=== PATIENT | female | born 1955 | race Two or more races ===

== ENCOUNTER 2018-10-25 13:30 | Inpatient (IN) | payer BC ==
--- NOTE | 2018-10-25 15:10 | ED ---
General Adult HPI <Jero Zhu - Last Filed: 10/25/18 16:56> - General Source: patient Mode of arrival: ambulatory Limitations: no limitations <Maurilio Ibrahim - Last Filed: 10/25/18 17:19> - General Chief complaint: Upper Respiratory Infection Stated complaint: cough, SOB, congestion Time Seen by Provider: 10/25/18 14:36 - History of Present Illness Initial comments: Patient is a 63-year-old male presents emergency Department by referral from [facility]. Patient reports upper respiratory symptoms for approximately 10 days that have not improved so she visited the urgent care for treatment. Rafal yoder received an x-ray at the urgent care and was diagnosed with pneumonia. Patient was given Rocephin, DuoNeb nebulized treatment and dexamethasone. Patient reports mild improvement but the costal persist. Patient reports the cough has been ongoing for approximately 10 days with "yellowish" sputum production. Patient denies shortness of breath but states that she otherwise feels "fine." Patient denies headache, otalgia or rhinorrhea. Patient denies fever, nausea, vomiting or diarrhea. Patient is a chronic smoker. (Maurilio Ibrahim) - Related Data Home Medications Medication Instructions Recorded Confirmed Multivit-Min/Iron/Folic/Lutein 1 tab PO HS 08/01/15 10/25/18 [Centrum Silver Women Tablet] Joint Flex 1 tab PO HS 10/25/18 10/25/18 Allergies Allergy/AdvReac Type Severity Reaction Status Date / Time No Known Allergies Allergy Verified 10/25/18 17:03 Review of Systems ROS Other: All systems not noted in ROS Statement are negative. <Jreo Zhu - Last Filed: 10/25/18 16:56> ROS Other: All systems not noted in ROS Statement are negative. <Maurilio Ibrahim - Last Filed: 10/25/18 17:19> ROS Statement: Those systems with pertinent positive or pertinent negative responses have been documented in the HPI. Past Medical History Past Medical History: No Reported History Additional Past Medical History / Comment(s): HAD EMERGENCY APPENDECTOMY 06/05/15. History of Any Multi-Drug Resistant Organisms: None Reported Past Surgical History: Appendectomy, Tubal Ligation Past Anesthesia/Blood Transfusion Reactions: No Reported Reaction Past Psychological History: No Psychological Hx Reported Smoking Status: Current every day smoker Past Alcohol Use History: None Reported Past Drug Use History: None Reported - Past Family History Mother History Unknown: Yes Family Medical History: Cancer Father Family Medical History: Cancer <Maurilio Ibrahim - Last Filed: 10/25/18 17:19> General Exam Limitations: no limitations General appearance: alert, in no apparent distress Head exam: Present: atraumatic, normocephalic, normal inspection Eye exam: Present: normal appearance, PERRL, EOMI Pupils: Present: normal accommodation ENT exam: Present: normal exam, normal oropharynx, mucous membranes moist, TM's normal bilaterally, normal external ear exam Neck exam: Present: normal inspection, full ROM Respiratory exam: Present: rhonchi (Mild rhonchi on the right lower base.). Absent: respiratory distress Cardiovascular Exam: Present: regular rate, normal rhythm, normal heart sounds GI/Abdominal exam: Present: soft. Absent: distended, tenderness, guarding Extremities exam: Present: normal inspection, full ROM Back exam: Present: normal inspection, full ROM Neurological exam: Present: alert, oriented X3 Psychiatric exam: Present: normal affect, normal mood Skin exam: Present: warm, intact, normal color <Maurilio Ibrahim - Last Filed: 10/25/18 17:19> Course Vital Signs 10/25/18 10/25/18 10/25/18 13:49 15:00 17:11 Temperature 99.2 F 100 F H 99.2 F Pulse Rate 113 H 109 H 91 Respiratory 18 18 18 Rate Blood Pressure 105/63 98/51 O2 Sat by Pulse 90 L 92 L 93 L Oximetry Medical Decision Making - Lab Data Result diagrams: 10/25/18 15:40 10/25/18 15:40 <Jero Zhu - Last Filed: 10/25/18 16:56> - Lab Data Result diagrams: 10/25/18 15:40 10/25/18 15:40 <Maurilio Ibrahim - Last Filed: 10/25/18 17:19> - Medical Decision Making Case discussed with RAFAL Castro. Case also discussed with Dr. Patel, covering with Dr. stratton, who will admit. (Jero Zhu) Patient is 63-year-old female presents emergency Department after direct referral from [employer]. Labs indicated leukocytosis. Due to poor oxygen saturation, smoking history and a 10 day history of present illness the patient will be admitted for close monitoring. Case was discussed with Dr. Zhu who is in agreement with the treatment plan. Patient will be placed on 1 L of oxygen and maintenance fluids. (Maurilio Ibrahim) - Lab Data Lab Results 10/25/18 10/25/18 Range/Units 15:40 15:40 WBC 11.4 H (3.8-10.6) k/uL RBC 4.14 (3.80-5.40) m/uL Hgb 13.1 (11.4-16.0) gm/dL Hct 39.8 (34.0-46.0) % MCV 96.2 (80.0-100.0) fL MCH 31.7 (25.0-35.0) pg MCHC 33.0 (31.0-37.0) g/dL RDW 12.1 (11.5-15.5) % Plt Count 351 (150-450) k/uL Sodium 136 L (137-145) mmol/L Potassium 4.2 (3.5-5.1) mmol/L Chloride 98 (98-107) mmol/L Carbon Dioxide 26 (22-30) mmol/L Anion Gap 12 mmol/L BUN 17 (7-17) mg/dL Creatinine 0.65 (0.52-1.04) mg/dL Est GFR (CKD-EPI)AfAm >90 (>60 ml/min/1.73 sqM) Est GFR (CKD-EPI)NonAf >90 (>60 ml/min/1.73 sqM) Glucose 253 H (74-99) mg/dL Calcium 9.4 (8.4-10.2) mg/dL Total Bilirubin 0.4 (0.2-1.3) mg/dL AST 27 (14-36) U/L ALT 35 (9-52) U/L Alkaline Phosphatase 49 (38-126) U/L Total Protein 6.9 (6.3-8.2) g/dL Albumin 3.9 (3.5-5.0) g/dL Disposition <Jero Zhu - Last Filed: 10/25/18 16:56> Is patient prescribed a controlled substance at d/c from ED?: No Time of Disposition: 16:16 <Maurilio Ibrahim - Last Filed: 10/25/18 17:19> Clinical Impression: Cough Disposition: ADMITTED IP TO THIS HOSP Condition: Stable
[2018-10-25] MEDS ORDERED: ACETAMINOPHEN TAB 325 MG TAB PO STA (15:34)
[2018-10-25] MEDS ORDERED: IBUPROFEN 600 MG TAB PO STA (15:34)
[2018-10-25 16:10] LABS: HCT 39.8 % (34.0-46.0); HGB 13.1 gm/dL (11.4-16.0); MCH 31.7 pg (25.0-35.0); MCV 96.2 fL (80.0-100.0); Mean Platelet Volume 6.8; Platelet Count 351 k/uL (150-450); RBC 4.14 m/uL (3.80-5.40); RDW 12.1 % (11.5-15.5); WBC 11.4 k/uL (3.8-10.6)
[2018-10-25 16:26] LABS: ALT 35 U/L (9-52); AST 27 U/L (14-36); African American GFR (CKD) >90 (>60 ml/min/1.73 sqM); Albumin 3.9 g/dL (3.5-5.0); Alkaline Phosphatase 49 U/L (38-126); Anion Gap 12 mmol/L; Blood Urea Nitrogen 17 mg/dL (7-17); Calcium 9.4 mg/dL (8.4-10.2); Carbon Dioxide 26 mmol/L (22-30); Chloride 98 mmol/L (98-107); Glucose 253 mg/dL (74-99); Potassium 4.2 mmol/L (3.5-5.1); Sodium 136 mmol/L (137-145); Total Bilirubin 0.4 mg/dL (0.2-1.3); Total Protein 6.9 g/dL (6.3-8.2)
[2018-10-25] MEDS ORDERED: NALOXONE 0.4 MG/ML 1 ML VIAL IV PRN (16:45)
[2018-10-25 19:13] VITALS: BMI 24.2
[2018-10-25] MEDS ORDERED: AZITHROMYCIN 500 MG in SODIUM CHLORIDE 0.9% 250 ML IVPB SCH (21:00)
[2018-10-25] MEDS: SODIUM CHLORIDE 0.9% 1,000 ML IV SCH (21:30)
[2018-10-26] MEDS: IPRATROPIUM-ALBUTEROL 3 ML NEB INHALATION SCH ×4 (07:48→18:58)
--- NOTE | 2018-10-26 08:20 | XR ---
EXAMINATION TYPE: XR chest 2V DATE OF EXAM: 10/26/2018 COMPARISON: 10/25/2018 HISTORY: 63-year-old female follow-up pneumonia, cough and shortness of breath TECHNIQUE: Frontal and lateral views FINDINGS: Heart normal size. Aorta and bony vasculature within normal limits. Hyperinflation with interstitial prominence. Patchy bibasilar densities have a more strandy appearance of the right base. Density slig htly increased on the left. Some nodular left hilar prominence may represent prominent vascular shadows. IMPRESSION: 1. COPD with stringy atelectasis at the right base is slightly increased patchy density at the left b ase that could represent additional atelectasis or developing infiltrate. 2. Nodular soft tissue density at the left hilum could represent prominent vascular shadows. Nonemerg ent follow-up contrast enhanced CT chest recommended to exclude underlying lymphadenopathy or mass.
[2018-10-26] MEDS: SODIUM CHLORIDE 0.9% 1,000 ML IV SCH (08:32)
[2018-10-26 10:35] LABS: Basophils % (A) 0 %; Eosinophils # (A) 0.1 k/uL (0-0.7); Eosinophils % (A) 1 %; HCT 38.6 % (34.0-46.0); HGB 12.4 gm/dL (11.4-16.0); Lymphocytes # (A) 0.8 k/uL (1.0-4.8); Lymphocytes % (A) 6 %; MCH 31.3 pg (25.0-35.0); MCHC 32.1 g/dL (31.0-37.0); MCV 97.5 fL (80.0-100.0); Mean Platelet Volume 7.5; Monocytes # (A) 0.5 k/uL (0-1.0); Monocytes % (A) 4 %; Neutrophils # (A) 11.5 k/uL (1.3-7.7); Neutrophils % (A) 89 %; Platelet Count 321 k/uL (150-450); RBC 3.96 m/uL (3.80-5.40); RDW 12.7 % (11.5-15.5)
[2018-10-26 10:48] LABS: African American GFR (CKD) >90 (>60 ml/min/1.73 sqM); Albumin 3.6 g/dL (3.5-5.0); Anion Gap 10 mmol/L; Blood Urea Nitrogen 17 mg/dL (7-17); Calcium 9.5 mg/dL (8.4-10.2); Carbon Dioxide 27 mmol/L (22-30); Chloride 101 mmol/L (98-107); Glucose 161 mg/dL (74-99); Sodium 138 mmol/L (137-145); Total Bilirubin 0.4 mg/dL (0.2-1.3); Total Protein 6.5 g/dL (6.3-8.2)
[2018-10-26 11:01] LABS: ALT 29 U/L (9-52); AST 23 U/L (14-36); Alkaline Phosphatase 32 U/L (38-126); Potassium 4.8 mmol/L (3.5-5.1)
[2018-10-26] MEDS ORDERED: RX INFO: IV CONTRAST WAS GIVEN 1 EACH MISC MISCELLANE PRN (12:34)
[2018-10-26] MEDS ORDERED: ONDANSETRON 4 MG/2 ML VIAL IVP PRN (12:41)
[2018-10-26] MEDS ORDERED: ACETAMINOPHEN TAB 325 MG TAB PO PRN (12:41)
--- NOTE | 2018-10-26 12:44 | P.HPIM ---
History of Present Illness H&P Date: 10/26/18 This is a 63-year-old female patient of Dr. Fitzgerald. Patient presented with complaints of cough and shortness of breath. Patient reports that she started developing upper respiratory symptoms 2 weeks ago including cough shortness breath and congestion. Patient reports that symptoms increased over the past 2 weeks. Patient reports that she presented to urgent care where a chest x-ray was done and she was diagnosed with pneumonia. Patient has past medical history of appendectomy and tubal ligation and nicotine dependence. Chest x-ray completed showing COPD with stringy atelectasis at the right base is slightly increased patchy density at the left base that could represent additional atelec tasis or developing infiltrate. Gradual soft tissue density left hilum could represent prominent vascular shadows nonemergent follow-up CT chest recommended to exclude underlying lymphadenopathy or mass. Patient had temperature 100.0. Patient started on Rocephin and azithromycin. Sputum culture ordered. CT chest ordered per pulmonary. At this time patient feels slightly improved. Patient having productive cough. Patient denies chest pain. Patient denies nausea vomiting or diarrhea. Patient denies any urinary burning or frequency. Review of Systems Please refer to HPI otherwise unremarkable Past Medical History Past Medical History: No Reported History Additional Past Medical History / Comment(s): HAD EMERGENCY APPENDECTOMY 06/05/15. History of Any Multi-Drug Resistant Organisms: None Reported Past Surgical History: Appendectomy, Tubal Ligation Past Anesthesia/Blood Transfusion Reactions: No Reported Reaction Past Psychological History: No Psychological Hx Reported Smoking Status: Current every day smoker Past Alcohol Use History: None Reported Additional Past Alcohol Use History / Comment(s): SMOKED 15 YEARS, <1PPD, CUT BACK NOW. Past Drug Use History: None Reported - Past Family History Mother History Unknown: Yes Family Medical History: Cancer Father Family Medical History: Cancer Medications and Allergies Home Medications Medication Instructions Recorded Confirmed Type Multivit-Min/Iron/Folic/Lutein 1 tab PO HS 08/01/15 10/25/18 History [Centrum Silver Women Tablet] Joint Flex 1 tab PO HS 10/25/18 10/25/18 History Allergies Allergy/AdvReac Type Severity Reaction Status Date / Time No Known Allergies Allergy Verified 10/25/18 17:03 Physical Exam Vitals: Vital Signs Temp Pulse Pulse Resp BP BP Pulse Ox 10/26/18 11:24 84 10/26/18 11:15 80 10/26/18 07:59 80 10/26/18 07:52 88 92 L 10/26/18 04:25 97.5 F L 78 18 103/71 92 L 10/25/18 20:15 98.0 F 94 18 97/61 92 L 10/25/18 18:40 99.1 F 95 18 105/59 92 L 10/25/18 18:14 97.6 F 94 20 94/57 93 L 10/25/18 17:11 99.2 F 91 18 98/51 93 L 10/25/18 15:00 100 F H 109 H 18 92 L 10/25/18 13:49 99.2 F 113 H 18 105/63 90 L Intake and Output 10/25/18 10/26/18 10/26/18 22:59 06:59 14:59 Other: Voiding Method Toilet Toilet Toilet # Voids 2 3 Head normocephalic Neck supple Lungs diminished bilaterally. Heart regular rate and rhythm S1-S2, no rub or gallop Abdomen is soft nontender nondistended positive bowel sounds no hepatosplenomegaly Extremities no edema Neuro alert and orientated to 3 Results CBC & Chem 7: 10/26/18 09:35 10/26/18 09:35 Labs: Abnormal Lab Results - Last 24 Hours (Table) 10/25/18 10/25/18 10/26/18 Range/Units 15:40 15:40 09:35 WBC 11.4 H 13.0 H (3.8-10.6) k/uL Neutrophils # 11.5 H (1.3-7.7) k/uL Lymphocytes # 0.8 L (1.0-4.8) k/uL Sodium 136 L (137-145) mmol/L Glucose 253 H (74-99) mg/dL Alkaline Phosphatase (38-126) U/L 10/26/18 Range/Units 09:35 WBC (3.8-10.6) k/uL Neutrophils # (1.3-7.7) k/uL Lymphocytes # (1.0-4.8) k/uL Sodium (137-145) mmol/L Glucose 161 H (74-99) mg/dL Alkaline Phosphatase 32 L (38-126) U/L Thrombosis Risk Factor Assmnt - Choose All That Apply Any of the Below Risk Factors Present?: Yes Each Factor Represents 1 point: Abnormal pulmonary function (COPD) Other Risk Factors: Yes Each Risk Factor Represents 2 Points: Age 61-74 years Other congenital or acquired thrombophilia - If yes, enter type in comment: No Thrombosis Risk Factor Assessment Total Risk Factor Score: 3 Thrombosis Risk Factor Assessment Level: Moderate Risk Assessment and Plan Assessment: 1. Increased shortness of breath and cough related to possible pneumonia. C hest x-ray completed showing COPD with stringy atelectasis at the right base is slightly increased patchy density at the left base that could represent additional atelectasis or developing infiltrate. Nodular soft density at the left hilium could represent prominent vascular shadows. Nonemergent follow-up contrast enhanced CT chest recommended to exclude underlying lymphadenopathy or mass. Pulmonary service is consulted. Sputum culture ordered. Patient started azithromycin and Rocephin. 2. Nicotine dependence. Patient educated greater than 3 minutes on smoking cessation. Nicotine patch will be ordered 3. History of appendectomy 4. Elevated blood sugars. hemoGlobin A1c will be ordered DVT prophylaxis heparin. GI prophylaxis Protonix
--- NOTE | 2018-10-26 15:11 | P.CNPUL ---
History of Present Illness Consult date: 10/26/18 Requesting physician: Arnie Patel Reason for consult: dyspnea, cough, COPD, abnormal CXR/CT Chief complaint: Acute COPD exacerbation, dyspnea, cough History of present illness: This is a 63-year-old white female patient of Dr. Fitzgerald, chronic smoker, and no other significant medical history, who presents to the emergency department on 10/25/2018 with complaints of shortness of breath, cough, congestion. Patient was sent to the ED from the urgent care clinic. Patient apparently had a upper respiratory symptoms for last 10 days which progressed to cough, congestion in the chest. She is producing yellow sputum, denied any fever or chills, chest x-ray was completed showing a COPD with stringy atelectasis at the right base, and increased patchy density at the left base that could represent atelectasis or developing infiltrate. There is a nodular soft tissue density at the left hilum, and follow-up CT chest was recommended to exclude any underlying pulmonary malignancy. Patient has never been seen by a independent living specialist, she is not on any inhalers or oxygen at home. She was started on empiric antibiotics for possibility of underlying pneumonia, and exacerbation of COPD. Lab work was reviewed showing admission blood work White blood cell count of 11.4, hemoglobin of 13.1, serum sodium is 136, potassium is 4.2, the rest of electrolytes and renal profile were within normal limits, LFTs were within normal limits. Low-grade temp yesterday with a T-max of 100F. She is afebrile today, breathing easier, lung sounds reveal diminished breath sounds bilaterally, no significant chest congestion, or wheezing. Review of Systems All systems: negative Constitutional: Denies chills, Denies fever Eyes: denies blurred vision, denies pain Ears, nose, mouth and throat: Denies headache, Denies sore throat Cardiovascular: Denies chest pain, Denies shortness of breath Respiratory: Reports congestion, Reports cough with sputum, Reports dyspnea, Denies cough Gastrointestinal: Denies abdominal pain, Denies diarrhea, Denies nausea, Denies vomiting Genitourinary: Denies dysuria, Denies hematuria Musculoskeletal: Denies myalgias Integumentary: Denies pruritus, Denies rash Neurological: Denies numbness, Denies weakness Psychiatric: Denies anxiety, Denies depression Endocrine: Denies fatigue, Denies weight change Past Medical History Past Medical History: No Reported History Additional Past Medical History / Comment(s): HAD EMERGENCY APPENDECTOMY 06/05/15. History of Any Multi-Drug Resistant Organisms: None Reported Past Surgical History: Appendectomy, Tubal Ligation Past Anesthesia/Blood Transfusion Reactions: No Reported Reaction Past Psychological History: No Psychological Hx Reported Smoking Status: Current every day smoker Past Alcohol Use History: None Reported Additional Past Alcohol Use History / Comment(s): SMOKED 15 YEARS, <1PPD, CUT BACK NOW. Past Drug Use History: None Reported - Past Family History Mother History Unknown: Yes Family Medical History: Cancer Father Family Medical History: Cancer Medications and Allergies Home Medications Medication Instructions Recorded Confirmed Type Multivit-Min/Iron/Folic/Lutein 1 tab PO HS 08/01/15 10/25/18 History [Centrum Silver Women Tablet] Joint Flex 1 tab PO HS 10/25/18 10/25/18 History Allergies Allergy/AdvReac Type Severity Reaction Status Date / Time No Known Allergies Allergy Verified 10/25/18 17:03 Physical Exam Vitals: Vital Signs Temp Pulse Pulse Resp BP BP Pulse Ox 10/26/18 12:56 97.6 F 93 16 94/56 94 L 10/26/18 11:24 84 10/26/18 11:15 80 10/26/18 07:59 80 10/26/18 07:52 88 92 L 10/26/18 04:25 97.5 F L 78 18 103/71 92 L 10/25/18 20:15 98.0 F 94 18 97/61 92 L 10/25/18 18:40 99.1 F 95 18 105/59 92 L 10/25/18 18:14 97.6 F 94 20 94/57 93 L 10/25/18 17:11 99.2 F 91 18 98/51 93 L 10/25/18 15:00 100 F H 109 H 18 92 L Intake and Output 10/25/18 10/26/18 10/26/18 22:59 06:59 14:59 Other: Voiding Method Toilet Toilet Toilet # Voids 2 3 4 # Bowel Movements 0 GENERAL EXAM: Alert, pleasant, 63-year-old white female, on room air, with a pulse ox of 94%, comfortable in no apparent distress. HEAD: Normocephalic/atraumatic. EYES: Normal reaction of pupils, equal size. Conjunctiva pink, sclera white. NOSE: Clear with pink turbinates. THROAT: No erythema or exudates. NECK: No masses, no JVD, no thyroid enlargement, no adenopathy. CHEST: No chest wall deformity. Symmetrical expansion. LUNGS: Equal air entry with diminished breath sounds bilaterally, no rhonchi, no wheezing CVS: Regular rate and rhythm, normal S1 and S2, no gallops, no murmurs, no rubs ABDOMEN: Soft, nontender. No hepatosplenomegaly, normal bowel sounds, no guarding or rigidity. EXTREMITIES: No clubbing, no edema, no cyanosis, 2+ pulses and upper and lower extremities. MUSCULOSKELETAL: Muscle strength and tone normal. SPINE: No scoliosis or deformity SKIN: No rashes CENTRAL NERVOUS SYSTEM: Alert and oriented -3. No focal deficits, tone is normal in all 4 extremities. PSYCHIATRIC: Alert and oriented -3. Appropriate affect. Intact judgment and insight. Results - Laboratory Findings CBC and BMP: 10/26/18 09:35 10/26/18 09:35 Abnormal lab findings: Abnormal Labs 10/25/18 10/25/18 10/26/18 15:40 15:40 09:35 WBC 11.4 H 13.0 H Neutrophils # 11.5 H Lymphocytes # 0.8 L Sodium 136 L Glucose 253 H Alkaline Phosphatase 10/26/18 09:35 WBC Neutrophils # Lymphocytes # Sodium Glucose 161 H Alkaline Phosphatase 32 L - Diagnostic Findings Chest x-ray: report reviewed, image reviewed Assessment and Plan Plan: Assessment: #1. Dyspnea related to acute COPD exacerbation, chest x-ray showed COPD with stringy atelectasis at the right base and atelectasis at the left base, or developing early infiltrates #2. Nodular soft tissue density at the left hilum, rule out possibility of lung malignancy #3. Chronic smoker #4. COPD the severity of which is unknown at this time, patient is not on any inhalers or oxygen #5. Recent history of upper respiratory infection #6. History of appendectomy Plan: Continue current medical treatment, will obtain CT chest with contrast to characterize the left hilar nodularity. Continue same antibiotics, breathing treatments, clinically patient is improving. Room air pulse ox is 94%, no fever or chills, senna sputum for culture, we'll continue to follow I performed a history & physical examination of the patient and discussed their management with my nurse practitioner, Jyothi Palacios. I reviewed the nurse practitioner's note and agree with the documented findings and plan of care. Lung sounds are positive for diminished breath sounds throughout the lung [place]. The findings and the impression was discussed with the patient. I attest to the documentation by the nurse practitioner. Time with Patient: Greater than 30
--- NOTE | 2018-10-26 16:30 | CT ---
EXAMINATION TYPE: CT chest w con DATE OF EXAM: 10/26/2018 COMPARISON: Radiograph same day HISTORY: 63-year-old female cough, congestion, pneumonia TECHNIQUE: Contiguous axial scanning of the chest after the administration of 100 mL of Isovue 300. Coronal/sagittal reconstructions performed. CT DLP: 466mGycm. Automatic exposure control utilized for a dose reduction. FINDINGS: Heart normal size without pericardial effusion. Aorta normal caliber with mild atherosclerotic arch calcifications and conventional arch vessel branc alina anatomy. Scattered nonenlarged mediastinal lymph nodes are present. No thoracic lymphadenopathy by CT size cri teria. There is some focal opacity along the anterior medial left midlung and adjacent patchy groundglass in the lingula. 7 mm subpleural pulmonary nodule anterior right lower lung. Patchy bibasilar areas of probable scarring and atelectasis. No pleural effusion. Moderate to advanced emphysema, relatively severe in the upper lungs. No hilar lymphadenopathy or hilar mass. No pleural effusion. Visualized upper abdomen shows prominent suggesting debris within the stomach. Bones: Mild degenerative disc disease throughout. IMPRESSION: 1. Mild infiltrate anteromedial left midlung with some adjacent groundglass. Correlate for infectious /inflammatory foci, possible early pneumonia. 2. A 7 mm subpleural pulmonary nodule on the right. Three-month follow-up CT chest to reassess. 3. COPD with moderate to advanced emphysema and bibasilar scarring or atelectasis. 4. No hilar mass or lymphadenopathy at the questioned radiographic site.
[2018-10-26] MEDS: HEPARIN SODIUM,PORCINE 5,000 UNIT/ML 1 ML VIAL SQ SCH (20:14)
[2018-10-26 20:49] LABS: Hemoglobin A1C 6.2 % (4.0-6.0)
[2018-10-26] MEDS ORDERED: AZITHROMYCIN 500 MG TAB PO SCH (21:00)
[2018-10-27 06:15] VITALS: BP 95/61; RESP 16; TEMP 97.8
[2018-10-27] MEDS: SODIUM CHLORIDE 0.9% 1,000 ML IV SCH (07:19)
[2018-10-27] MEDS: IPRATROPIUM-ALBUTEROL 3 ML NEB INHALATION SCH ×2 (07:26→11:15)
[2018-10-27] MEDS ORDERED: PANTOPRAZOLE 40 MG TABLET PO SCH (07:30)
[2018-10-27] MEDS: HEPARIN SODIUM,PORCINE 5,000 UNIT/ML 1 ML VIAL SQ SCH (08:06)
[2018-10-27 09:10] LABS: Basophils % (A) 0 %; Eosinophils # (A) 0.1 k/uL (0-0.7); Eosinophils % (A) 1 %; HCT 39.3 % (34.0-46.0); HGB 12.5 gm/dL (11.4-16.0); Lymphocytes # (A) 2.5 k/uL (1.0-4.8); Lymphocytes % (A) 28 %; MCH 31.4 pg (25.0-35.0); MCHC 31.9 g/dL (31.0-37.0); MCV 98.5 fL (80.0-100.0); Monocytes # (A) 0.3 k/uL (0-1.0); Monocytes % (A) 4 %; Neutrophils # (A) 5.8 k/uL (1.3-7.7); Neutrophils % (A) 66 %; Platelet Count 330 k/uL (150-450); RBC 3.99 m/uL (3.80-5.40); RDW 13.9 % (11.5-15.5); WBC 8.8 k/uL (3.8-10.6)
[2018-10-27 09:30] LABS: ALT 31 U/L (9-52); AST 19 U/L (14-36); African American GFR (CKD) >90 (>60 ml/min/1.73 sqM); Albumin 3.4 g/dL (3.5-5.0); Alkaline Phosphatase 40 U/L (38-126); Anion Gap 10 mmol/L; Blood Urea Nitrogen 17 mg/dL (7-17); Calcium 9.2 mg/dL (8.4-10.2); Carbon Dioxide 26 mmol/L (22-30); Chloride 103 mmol/L (98-107); Glucose 156 mg/dL (74-99); Potassium 4.3 mmol/L (3.5-5.1); Sodium 139 mmol/L (137-145); Total Bilirubin 0.2 mg/dL (0.2-1.3); Total Protein 6.1 g/dL (6.3-8.2)
[2018-10-27 11:27] VITALS: PULSE 80
--- NOTE | 2018-10-27 12:57 | P.DS ---
Providers Date of admission: 10/27/18 09:43 Expected date of discharge: 10/27/18 Attending physician: Arnie Patel Consults: 10/25/18 20:32 Consult Physician Routine Consulting Provider: Manuel Harris Consult Reason/Comments: pneumonia Do you want consulting provider notified?: Yes, Notify in am Primary care physician: Nava Fitzgerald Hospital Course: Discharge diagnosis 1. Increased shortness of breath and cough related to possible pneumonia. Chest x-ray completed showing COPD with stringy atelectasis at the right base is slightly increased patchy density at the left base that could represent additional atelectasis or developing infiltrate. Nodular soft density at the left hilium could represent prominent vascular shadows. Nonemergent follow-up contrast enhanced CT chest recommended to exclude underlying lymphadenopathy or mass. Pulmonary service is consulted. Sputum culture ordered. Patient started azithromycin and Rocephin. CT scan of chest completed showing mild infiltrate anterior medial left mid and lung with some adjacent groundglass. Correlate for infectious inflammatory foci possibly early pneumonia. Pulmonary services has cleared patient for discharge. Patient will be discharged on Ceftin for one week per pulmonary recommendation. Patient to follow-up outpatient for further workup 2. Pulmonary nodule seen on computed tomography scan. Computed tomography scan and 7 mm subpleural pulmonary nodule in the right recommended three-month follow-up CT. Discussed with pulmonary services. Patient has been cleared for discharge patient to follow-up in pulmonary office for further workup and management 3. Nicotine dependence. Patient educated greater than 3 minutes on smoking cessation. Nicotine patch will be ordered 4. History of appendectomy 5. Elevated blood sugars. hemoGlobin A1c 6.2. Patient to follow-up with PCP for further management Hospital course This is a 63-year-old female patient of Dr. Fitzgerald. Patient presented with complaints of cough and shortness of breath. Patient reports that she started developing upper respiratory symptoms 2 weeks ago including cough shortness breath and congestion. Patient reports that symptoms increased over the past 2 weeks. Patient reports that she presented to urgent care where a chest x-ray was done and she was diagnosed with pneumonia. Patient has past medical history of appendectomy and tubal ligation and nicotine dependence. Chest x-ray completed showing COPD with stringy atelectasis at the right base is slightly increased patchy density at the left base that could represent additional atelectasis or developing infiltrate. Gradual soft tissue density left hilum could represent prominent vascular shadows nonemergent follow-up CT chest recommended to exclude underlying lymphadenopathy or mass. Patient had temperature 100.0. Patient started on Rocephin and azithromycin. Sputum culture ordered. CT chest ordered per pulmonary. At this time patient feels slightly improved. Patient having productive cough. Patient denies chest pain. Patient denies nausea vomiting or diarrhea. Patient denies any urinary burning or frequency. On 10/27/2018 patient is alert and oriented 3. Patient discusses that she is not very eager to go home. Patient has been cleared for discharge from pulmonar y standpoint. Patient reports shortness of breath has significantly improved. Patient denies chest pain. Patient denies nausea vomiting or diarrhea. Patient denies any urinary burning or frequency. Patient will be DC'd on Ceftin for one week per pulmonary recommendation. Patient to follow-up with pulmonary services for follow-up in regards to pulmonary nodule. Repeat CT in 3 months. Patient to follow-up with PCP for further management I performed an examination of the patient and discussed their management with the Nurse Practitioner. I have reviewed the Nurse Practitioner's notes and agree with the documented findings and plan of care Patient Condition at Discharge: Stable Plan - Discharge Summary Discharge Rx Participant: Yes New Discharge Prescriptions: New Cefuroxime Axetil [Ceftin] 500 mg PO BID 7 Days #14 tab Continue Multivit-Min/Iron/Folic/Lutein [Centrum Silver Women Tablet] 1 tab PO HS Joint Flex 1 tab PO HS Discharge Medication List Multivit-Min/Iron/Folic/Lutein [Centrum Silver Women Tablet] 1 tab PO HS 6 [History] Joint Flex 1 tab PO HS 10/25/18 [History] Cefuroxime Axetil [Ceftin] 500 mg PO BID 7 Days #14 tab 10/27/18 [Rx] Follow up Appointment(s)/Referral(s): Nava Fitzgerald MD [Primary Care Provider] - 1-2 days Manuel Harris MD [STAFF PHYSICIAN] - 1 Week Patient Instructions/Handouts: Viral Pneumonia (DC), Pneumococcal Vaccine for Adults (ED) Activity/Diet/Wound Care/Special Instructions: Please follow-up with neurologist. Please return to emergency department if symptoms worsen. Discharge Disposition: HOME SELF-CARE
--- NOTE | 2018-10-27 14:03 | P.PN ---
Subjective Progress Note Date: 10/27/18 Principal diagnosis: Acute exacerbation of chronic obstructive pulmonary disease This is a 63-year-old white female patient of Dr. Fitzgerald, chronic smoker, and no other significant medical history, who presents to the emergency department on 10/25/2018 with complaints of shortness of breath, cough, congestion. Patient was sent to the ED from the urgent care clinic. Patient apparently had a upper respiratory symptoms for last 10 days which progressed to cough, congestion in the chest. She is producing yellow sputum, denied any fever or chills, chest x-ray was completed showing a COPD with stringy atelectasis at the right base, and increased patchy density at the left base that could represent atelectasis or developing infiltrate. There is a nodular soft tissue density at the left hilum, and follow-up CT chest was recommended to exclude any underlying pulmonary malignancy. Patient has never been seen by a duplication specialist, she is not on any inhalers or oxygen at home. She was started on empiric antibiotics for possibility of underlying pneumonia, and exacerbation of COPD. Lab work was reviewed showing admission blood work White blood cell count of 11.4, hemoglobin of 13.1, serum sodium is 136, potassium is 4.2, the rest of electrolytes and renal profile were within normal limits, LFTs were within normal limits. Low-grade temp yesterday with a T-max of 100F. She is afebrile today, breathing easier, lung sounds reveal diminished breath sounds bi laterally, no significant chest congestion, or wheezing. The patient is seen today 10/27/2018 in follow-up on the regular medical floor. She is awake and alert in no acute distress. No worsening shortness of breath, cough or congestion. She's been afebrile. Maintaining good O2 saturations in the 90s on 1 L/m per nasal cannula. White count 8.8. Hemoglobin 12.5. Creatinine 0.62. She is continued on ceftriaxone and azithromycin along with bronchodilators. She is quite anxious to go home. Objective - Vital Signs Vital signs: Vital Signs Temp 97.8 F 10/27/18 06:14 Pulse 80 10/27/18 11:26 Resp 16 10/27/18 06:14 BP 95/61 10/27/18 06:14 Pulse Ox 94 L 10/27/18 07:28 Intake & Output 07/06/1510/27/18 10/27/18 18:59 06:59 18:59 Other: Voiding Method Toilet Toilet # Voids 4 1 # Bowel Movements 0 - Exam GENERAL EXAM: Very pleasant 63-year-old female patient. Alert, active, comfortable in no apparent distress. HEAD: Normocephalic. EYES: Normal reaction of pupils, equal size. NOSE: Clear with pink turbinates. THROAT: No erythema or exudates. NECK: No masses, no JVD. CHEST: No chest wall deformity. LUNGS: Equal air entry with faint end expiratory wheeze, diminished CVS: S1 and S2 normal with no audible murmur, regular rhythm. ABDOMEN: No hepatosplenomegaly, normal bowel sounds, no guarding or rigidity. SPINE: No scoliosis or deformity SKIN: No rashes CENTRAL NERVOUS SYSTEM: No focal deficits, tone is normal in all 4 extremities. EXTREMITIES: There is no peripheral edema. No clubbing, no cyanosis. Peripheral pulses are intact. - Labs CBC & Chem 7: 10/27/18 08:12 10/27/18 08:12 Labs: Abnormal Lab Results - Last 24 Hours (Table) 10/26/18 10/27/18 Range/Units 09:35 08:12 Glucose 156 H (74-99) mg/dL Hemoglobin A1c 6.2 H (4.0-6.0) % Total Protein 6.1 L (6.3-8.2) g/dL Albumin 3.4 L (3.5-5.0) g/dL Assessment and Plan Assessment: Assessment: #1. Dyspnea related to acute COPD exacerbation, chest x-ray showed COPD with stringy atelectasis at the right base and atelectasis at the left base, or developing early infiltrates #2. Nodular soft tissue density at the left hilum, rule out possibility of lung malignancy #3. Chronic smoker #4. COPD the severity of which is unknown at this time, patient is not on any inhalers or oxygen #5. Recent history of upper respiratory infection #6. History of appendectomy Plan: The patient was seen and evaluated by Dr. Harris. She does have a 7 mm subpleural pulmonary nodule on the right with recommendations for a three-month follow-up computed tomography scan of the chest to reassess. There is also COPD with moderate to advanced emphysema and bibasilar scarring/atelectasis. No hilar mass or lymphadenopathy noted. She is cleared for discharge from the pulmonary standpoint. She should follow-up in our office where we can perform full pulmonary function testing and evaluate the severity of her COPD and make further recommendations regarding maintenance medications. She is educated regarding the importance of complete smoking cessation. I, the cosigning physician, performed a history & physical examination of the patient. Lungs sounds with end expiratory wheeze, diminished Maintaining good O2 saturations in the 90s on 1 L/m per nasal cannula. I discussed the assessment and plan of care with my nurse practitioner, Kinjal Huang. I attest to the above note as dictated by her.
== END 2018-10-27 14:18 | disposition home or self-care (01) | DRG 191 ==
LOC: EC 13:30 → 4MS4W 17:05 → OBSVTOIN 10-27 09:43
PROVIDERS: ADMIT Internal Medicine; ATTEND Internal Medicine
DX: J44.1 Chronic obstructive pulmonary disease with (acute) exacerbation (principal); J98.11 Atelectasis; R73.9 Hyperglycemia, unspecified; R91.1 Solitary pulmonary nodule; F17.210 Nicotine dependence, cigarettes, uncomplicated; Z90.49 Acquired absence of other specified parts of digestive tract; Z98.51 Tubal ligation status; Z80.9 Family history of malignant neoplasm, unspecified
CPT/HCPCS: 36415; 71046; 71260; 80053; 83036; 85025; 85027; 94640; 94760; 99285

== ENCOUNTER 2021-08-16 09:25 | Observation (INO) | payer MEDICARE ==
--- NOTE | 2021-08-16 10:10 | ED ---
General Adult HPI - General Chief complaint: Weakness Stated complaint: Weakness, near syncope Time Seen by Provider: 08/16/21 09:55 Source: patient, RN notes reviewed, old records reviewed Mode of arrival: wheelchair Limitations: no limitations - History of Present Illness Initial comments: 65-year-old female alert and oriented 4 presents to the emergency room with shortness of breath dizziness and feeling foggy with chest heaviness that started at 7:00 this morning. Patient states she did vomit one time it was clear in color. She also did get diaphoretic but resolved with rest. She does have a history of COPD. She does not use oxygen at home. She has never been a smoker. She does have bilateral lower extremity swelling. -: hour(s) (3) Location: chest Quality: other (heaviness) Improves with: rest Worsens with: movement (ambulating) Associated Symptoms: chest pain (heaviness), nausea/vomiting, shortness of breath, other (dizziness) Treatments Prior to Arrival: none - Related Data Home Medications Medication Instructions Recorded Confirmed Multivit-Min/Iron/Folic/Lutein 1 tab PO HS 08/01/15 08/16/21 [Centrum Silver Women Tablet] Glucosamine/Chondr Dailey A Sod [Osteo 1 tab PO HS 08/16/21 08/16/21 Bi-Flex Caplet] Allergies Allergy/AdvReac Type Severity Reaction Status Date / Time No Known Allergies Allergy Verified 08/16/21 13:01 Review of Systems ROS Statement: Those systems with pertinent positive or pertinent negative responses have been documented in the HPI. ROS Other: All systems not noted in ROS Statement are negative. Past Medical History Past Medical History: COPD Additional Past Medical History / Comment(s): HAD EMERGENCY APPENDECTOMY 06/05/15. History of Any Multi-Drug Resistant Organisms: None Reported Past Surgical History: Appendectomy, Tubal Ligation Past Anesthesia/Blood Transfusion Reactions: No Reported Reaction Past Psychological History: No Psychological Hx Reported Smoking Status: Former smoker Past Alcohol Use History: None Reported Past Drug Use History: None Reported - Past Family History Mother History Unknown: Yes Family Medical History: Cancer Father Family Medical History: Cancer General Exam Limitations: no limitations General appearance: alert, in no apparent distress Head exam: Present: atraumatic, normocephalic Eye exam: Absent: scleral icterus, conjunctival injection, periorbital swelling ENT exam: Present: normal exam, normal oropharynx, mucous membranes moist Neck exam: Present: normal inspection, full ROM. Absent: tenderness, meni ngismus, lymphadenopathy Respiratory exam: Present: rales (Bilateral bases). Absent: respiratory distress, chest wall tenderness, accessory muscle use Cardiovascular Exam: Present: regular rate, normal rhythm Extremities exam: Present: normal capillary refill, pedal edema (2+ bilateral). Absent: tenderness, joint swelling, calf tenderness Back exam: Present: normal inspection, full ROM. Absent: tenderness, CVA tenderness (R), CVA tenderness (L), rash noted Neurological exam: Present: alert, oriented X3 Psychiatric exam: Present: normal affect, normal mood Skin exam: Present: warm, dry, intact, normal color. Absent: cyanosis, diaphoretic, erythema, petechiae, pallor, mottled Course Vital Signs 08/16/21 08/16/21 08/16/21 09:33 11:25 11:28 Temperature 98 F 97.7 F Pulse Rate 84 71 Respiratory 15 20 Rate Blood Pressure 107/70 122/73 O2 Sat by Pulse 86 L 96 Oximetry 08/16/21 08/16/21 12:56 14:10 Temperature 97.7 F Pulse Rate 86 86 Respiratory 20 20 Rate Blood Pressure 122/80 104/61 O2 Sat by Pulse 95 95 Oximetry EKG Findings - EKG Results: EKG: sinus rhythm (Ventricular rate of 77, MI interval 0.150, QRS 0.85, QTC 0.394; T-wave inversions in V3, no old EKG) Medical Decision Making - Medical Decision Making Patient presents with shortness of breath and dizziness with chest pressure and diaphoresis, oxygen saturation 86% on room air. Patient does have 1+ bilateral lower extremity edema. There is no evidence of leukocytosis. BNP was 957, troponin is -0.012, EKG does not show any sign of ST elevation. Patient was placed on 4 liters nasal cannula and oxygen saturation increased to 96%. Patient will be admitted to the hospital for COPD exacerbation with hypoxia. Case discussed with Dr. Eli - Lab Data Result diagrams: 08/16/21 10:12 08/16/21 10:12 Lab Results 08/16/21 08/16/21 08/16/21 Range/Units 10:12 10:12 10:12 WBC 7.8 (3.8-10.6) k/uL RBC 4.87 (3.80-5.40) m/uL Hgb 16.2 H (11.4-16.0) gm/dL Hct 49.5 H (34.0-46.0) % MCV 101.8 H (80.0-100.0) fL MCH 33.3 (25.0-35.0) pg MCHC 32.7 (31.0-37.0) g/dL RDW 13.9 (11.5-15.5) % Plt Count 186 (150-450) k/uL MPV 7.8 Neutrophils % 78 % Lymphocytes % 10 % Monocytes % 5 % Eosinophils % 4 % Basophils % 0 % Neutrophils # 6.1 (1.3-7.7) k/uL Lymphocytes # 0.8 L (1.0-4.8) k/uL Monocytes # 0.4 (0-1.0) k/uL Eosinophils # 0.3 (0-0.7) k/uL Basophils # 0.0 (0-0.2) k/uL Macrocytosis Slight PT 10.6 (9.0-12.0) sec INR 1.0 (<1.2) APTT 23.3 (22.0-30.0) sec Sodium (137-145) mmol/L Potassium (3.5-5.1) mmol/L Chloride (98-107) mmol/L Carbon Dioxide (22-30) mmol/L Anion Gap mmol/L BUN (7-17) mg/dL Creatinine (0.52-1.04) mg/dL Est GFR (CKD-EPI)AfAm (>60 ml/min/1.73 sqM) Est GFR (CKD-EPI)NonAf (>60 ml/min/1.73 sqM) Glucose (74-99) mg/dL Plasma Lactic Acid Asael (0.7-2.0) mmol/L Calcium (8.4-10.2) mg/dL Magnesium (1.6-2.3) mg/dL Total Bilirubin (0.2-1.3) mg/dL AST (14-36) U/L ALT (4-34) U/L Alkaline Phosphatase (38-126) U/L Troponin I (0.000-0.034) ng/mL NT-Pro-B Natriuret Pep pg/mL Total Protein (6.3-8.2) g/dL Albumin (3.5-5.0) g/dL Urine Color Yellow Urine Appearance Clear (Clear) Urine pH 6.5 (5.0-8.0) Ur Specific [place] 1.016 (1.001-1.035) Urine Protein Negative (Negative) Urine Glucose (UA) Negative (Negative) Urine Ketones Negative (Negative) Urine Blood Negative (Negative) Urine Nitrite Negative (Negative) Urine Bilirubin Negative (Negative) Urine Urobilinogen <2.0 (<2.0) mg/dL Ur Leukocyte Esterase Negative (Negative) 08/16/21 08/16/21 08/16/21 Range/Units 10:12 10:12 10:12 WBC (3.8-10.6) k/uL RBC (3.80-5.40) m/uL Hgb (11.4-16.0) gm/dL Hct (34.0-46.0) % MCV (80.0-100.0) fL MCH (25.0-35.0) pg MCHC (31.0-37.0) g/dL RDW (11.5-15.5) % Plt Count (150-450) k/uL MPV Neutrophils % % Lymphocytes % % Monocytes % % Eosinophils % % Basophils % % Neutrophils # (1.3-7.7) k/uL Lymphocytes # (1.0-4.8) k/uL Monocytes # (0-1.0) k/uL Eosinophils # (0-0.7) k/uL Basophils # (0-0.2) k/uL Macrocytosis PT (9.0-12.0) sec INR (<1.2) APTT (22.0-30.0) sec Sodium 136 L (137-145) mmol/L Potassium 5.1 (3.5-5.1) mmol/L Chloride 100 (98-107) mmol/L Carbon Dioxide 32 H (22-30) mmol/L Anion Gap 4 mmol/L BUN 18 H (7-17) mg/dL Creatinine 0.84 (0.52-1.04) mg/dL Est GFR (CKD-EPI)AfAm 84 (>60 ml/min/1.73 sqM) Est GFR (CKD-EPI)NonAf 73 (>60 ml/min/1.73 sqM) Glucose 108 H (74-99) mg/dL Plasma Lactic Acid Asael 1.0 (0.7-2.0) mmol/L Calcium 9.4 (8.4-10.2) mg/dL Magnesium 1.7 (1.6-2.3) mg/dL Total Bilirubin 0.9 (0.2-1.3) mg/dL AST 24 (14-36) U/L ALT 24 (4-34) U/L Alkaline Phosphatase 37 L (38-126) U/L Troponin I <0.012 (0.000-0.034) ng/mL NT-Pro-B Natriuret Pep pg/mL Total Protein 6.6 (6.3-8.2) g/dL Albumin 3.7 (3.5-5.0) g/dL Urine Color Urine Appearance (Clear) Urine pH (5.0-8.0) Ur Specific [place] (1.001-1.035) Urine Protein (Negative) Urine Glucose (UA) (Negative) Urine Ketones (Negative) Urine Blood (Negative) Urine Nitrite (Negative) Urine Bilirubin (Negative) Urine Urobilinogen (<2.0) mg/dL Ur Leukocyte Esterase (Negative) 08/16/21 Range/Units 10:12 WBC (3.8-10.6) k/uL RBC (3.80-5.40) m/uL Hgb (11.4-16.0) gm/dL Hct (34.0-46.0) % MCV (80.0-100.0) fL MCH (25.0-35.0) pg MCHC (31.0-37.0) g/dL RDW (11.5-15.5) % Plt Count (150-450) k/uL MPV Neutrophils % % Lymphocytes % % Monocytes % % Eosinophils % % Basophils % % Neutrophils # (1.3-7.7) k/uL Lymphocytes # (1.0-4.8) k/uL Monocytes # (0-1.0) k/uL Eosinophils # (0-0.7) k/uL Basophils # (0-0.2) k/uL Macrocytosis PT (9.0-12.0) sec INR (<1.2) APTT (22.0-30.0) sec Sodium (137-145) mmol/L Potassium (3.5-5.1) mmol/L Chloride (98-107) mmol/L Carbon Dioxide (22-30) mmol/L Anion Gap mmol/L BUN (7-17) mg/dL Creatinine (0.52-1.04) mg/dL Est GFR (CKD-EPI)AfAm (>60 ml/min/1.73 sqM) Est GFR (CKD-EPI)NonAf (>60 ml/min/1.73 sqM) Glucose (74-99) mg/dL Plasma Lactic Acid Asael (0.7-2.0) mmol/L Calcium (8.4-10.2) mg/dL Magnesium (1.6-2.3) mg/dL Total Bilirubin (0.2-1.3) mg/dL AST (14-36) U/L ALT (4-34) U/L Alkaline Phosphatase (38-126) U/L Troponin I (0.000-0.034) ng/mL NT-Pro-B Natriuret Pep 957 pg/mL Total Protein (6.3-8.2) g/dL Albumin (3.5-5.0) g/dL Urine Color Urine Appearance (Clear) Urine pH (5.0-8.0) Ur Specific [place] (1.001-1.035) Urine Protein (Negative) Urine Glucose (UA) (Negative) Urine Ketones (Negative) Urine Blood (Negative) Urine Nitrite (Negative) Urine Bilirubin (Negative) Urine Urobilinogen (<2.0) mg/dL Ur Leukocyte Esterase (Negative) Disposition Clinical Impression: Hypoxia, COPD (chronic obstructive pulmonary disease) Disposition: ADMITTED IP TO THIS HOSP Decision Date: 08/16/21 Decision Time: 12:05
[2021-08-16 10:22] LABS: Basophils % (A) 0 %; Eosinophils # (A) 0.3 k/uL (0-0.7); Eosinophils % (A) 4 %; HCT 49.5 % (34.0-46.0); HGB 16.2 gm/dL (11.4-16.0); Lymphocytes # (A) 0.8 k/uL (1.0-4.8); Lymphocytes % (A) 10 %; MCH 33.3 pg (25.0-35.0); MCHC 32.7 g/dL (31.0-37.0); MCV 101.8 fL (80.0-100.0); Macrocytosis Slight; Mean Platelet Volume 7.8; Monocytes # (A) 0.4 k/uL (0-1.0); Monocytes % (A) 5 %; Neutrophils # (A) 6.1 k/uL (1.3-7.7); Neutrophils % (A) 78 %; Platelet Count 186 k/uL (150-450); RBC 4.87 m/uL (3.80-5.40); RDW 13.9 % (11.5-15.5); WBC 7.8 k/uL (3.8-10.6)
[2021-08-16 10:34] LABS: Partial Thromboplastin Time 23.3 sec (22.0-30.0); Prothrombin Time 10.6 sec (9.0-12.0)
[2021-08-16 10:37] LABS: Albumin 3.7 g/dL (3.5-5.0); Calcium 9.4 mg/dL (8.4-10.2); Magnesium 1.7 mg/dL (1.6-2.3); Potassium 5.1 mmol/L (3.5-5.1); Total Bilirubin 0.9 mg/dL (0.2-1.3); Total Protein 6.6 g/dL (6.3-8.2)
--- NOTE | 2021-08-16 10:49 | XR ---
EXAMINATION TYPE: XR chest 2V DATE OF EXAM: 08/16/2021 COMPARISON: Chest x-ray 10/26/2018, CT 10/26/2018 INDICATION: Weakness TECHNIQUE: Frontal and lateral views of the chest are obtained. FINDINGS: The heart size is normal. The pulmonary vasculature is normal. Fullness remains at the left perihilar region. There is some linear opacity at the left base may be related to atelectasis. Mild plate atelectasis i s also likely present at the right lung base. Previous CT reported 7 mm subpleural nodule on the rig ht, consider repeat CT chest to confirm stability. IMPRESSION: 1. Bibasilar platelike atelectasis. 2. Persistent fullness at the left perihilar region. 3. Consider follow-up CT to confirm stability of previous right subpleural nodularity reported by CT exam.
[2021-08-16 11:28] LABS: Appearance,Urine Clear (Clear); Bilirubin,Urine Negative (Negative); Blood,Urine Negative (Negative); Color,Urine Yellow; Glucose,Urine (UA) Negative (Negative); Ketones,Urine Negative (Negative); Leukocyte Esterase,Urine Negative (Negative); Nitrite,Urine Negative (Negative); PH, Urine 6.5 (5.0-8.0); Protein,Urine Negative (Negative); Specific Gravity,Urine 1.016 (1.001-1.035); Urobilinogen,Urine <2.0 mg/dL (<2.0)
[2021-08-16] MEDS ORDERED: NALOXONE 0.4 MG/ML 1 ML VIAL IV PRN (12:05)
[2021-08-16] MEDS ORDERED: ACETAMINOPHEN TAB 325 MG TAB PO PRN (12:05)
--- NOTE | 2021-08-16 15:41 | P.HPIM ---
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 She presents because of worsening dyspnea over the last 1-2 days associated with cough and white milky phlegm which looks chronic as per patient and some chest tightness and pressure on the central chest which is much worse with coughing. She was to smoke and quit about 2 weeks ago and denies alcohol or illicit drugs. No abdominal pain or vomiting. No dysuria or urgency. No headache or dizziness. No weakness or numbness. No fever. She is hemodynamically stable but slightly tachypneic at 20 breaths per minute, on admission she was hypoxic at 86% on room air. Saturation is currently 95% on 4 L oxygen. Labs show an unremarkable CBC, hemoglobin elevated with 16.2, INR 1.0, sodium 136, creatinine 0.8. BUN 18 ProBNP is 957, liver enzymes not elevated. Troponin is negative less than 0.01. Urine analysis is negative. EKG showed normal sinus rhythm at 77 with moderate T-wave abnormality, consider anterior ischemia. And QTC 394. Chest x-ray showing bibasilar platelike atelectasis, persistent fullness in the left perihilar region. Consider follow-up CT to confirm stability of previously right subpleural nodularity reported by computed tomography scan Intake emergency room patient was just given Tylenol. Review of Systems CONSTITUTIONAL: No fever, no malaise, no fatigue. HEENT: No recent visual problems or hearing problems. Denied any sore throat. CARDIOVASCULAR: No orthopnea, PND, no palpitations, no syncope. PULMONARY: No chest wall tenderness, no hemoptysis. GASTROINTESTINAL: No diarrhea, no nausea, no vomiting, no abdominal pain. Normoactive bowel sounds. NEUROLOGICAL: No headaches, no weakness, no numbness. HEMATOLOGICAL: Denies any bleeding or petechiae. GENITOURINARY: Denies any burning micturition, frequency, or urgency. MUSCULOSKELETAL/RHEUMATOLOGICAL: Denies any joint pain, swelling, or any muscle pain. ENDOCRINE: Denies any polyuria or polydipsia. Past Medical History Past Medical History: COPD Additional Past Medical History / Comment(s): HAD EMERGENCY APPENDECTOMY 06/05/15. History of Any Multi-Drug Resistant Organisms: None Reported Past Surgical History: Appendectomy, Tubal Ligation Past Anesthesia/Blood Transfusion Reactions: No Reported Reaction Past Psychological History: No Psychological Hx Reported Smoking Status: Former smoker Past Alcohol Use History: None Reported Past Drug Use History: None Reported - Past Family History Mother History Unknown: Yes Family Medical History: Cancer Father Family Medical History: Cancer Medications and Allergies Home Medications Medication Instructions Recorded Confirmed Type Multivit-Min/Iron/Folic/Lutein 1 tab PO HS 08/01/15 08/16/21 History [Centrum Silver Women Tablet] Glucosamine/Chondr Dailey A Sod [Osteo 1 tab PO HS 08/16/21 08/16/21 History Bi-Flex Caplet] Allergies Allergy/AdvReac Type Severity Reaction Status Date / Time No Known Allergies Allergy Verified 08/16/21 13:01 Physical Exam Vitals: Vital Signs Temp Pulse Pulse Resp BP BP Pulse Ox 08/16/21 14:35 98.1 F 106 H 15 107/63 93 L 08/16/21 14:10 97.7 F 86 20 104/61 95 08/16/21 12:56 86 20 122/80 95 08/16/21 11:28 97.7 F 08/16/21 11:25 71 20 122/73 96 08/16/21 09:33 98 F 84 15 107/70 86 L Intake and Output 08/16/21 08/16/21 08/16/21 06:59 14:59 22:59 Other: Weight 77.111 kg GENERAL: The patient is alert and oriented x3, not in any acute distress. Well developed, well nourished. HEENT: Pupils are round and equally reacting to light. EOMI. No scleral icterus. No conjunctival pallor. Normocephalic, atraumatic. No pharyngeal erythema. No thyromegaly. CARDIOVASCULAR: S1 and S2 present. No murmurs, rubs, or gallops. -PULMONARY: Chest is clear to auscultation, scattered wheezing. No crepitation ABDOMEN: Soft, nontender, nondistended, normoactive bowel sounds. No palpable organomegaly. MUSCULOSKELETAL: No joint swelling or deformity. EXTREMITIES: No cyanosis, clubbing, or pedal edema. NEUROLOGICAL: Gross neurological examination did not reveal any focal deficits. SKIN: No rashes. No petechiae Results CBC & Chem 7: 08/16/21 10:12 08/16/21 10:12 Labs: Abnormal Lab Results - Last 24 Hours (Table) 08/16/21 08/16/21 Range/Units 10:12 10:12 Hgb 16.2 H (11.4-16.0) gm/dL Hct 49.5 H (34.0-46.0) % MCV 101.8 H (80.0-100.0) fL Lymphocytes # 0.8 L (1.0-4.8) k/uL Sodium 136 L (137-145) mmol/L Carbon Dioxide 32 H (22-30) mmol/L BUN 18 H (7-17) mg/dL Glucose 108 H (74-99) mg/dL Alkaline Phosphatase 37 L (38-126) U/L Thrombosis Risk Factor Assmnt - Choose All That Apply Each Factor Represents 1 point: Swollen legs (current) Each Risk Factor Represents 2 Points: Age 61-74 years Thrombosis Risk Factor Assessment Total Risk Factor Score: 3 Thrombosis Risk Factor Assessment Level: Moderate Risk Assessment and Plan Assessment: Acute COPD exacerbation Chest pressure Left hilar fullness Multiple lung nodules Nicotine dependence, patient was counseled and she already quit. She declines nicotine patch Mild erythrocytosis, could be secondary related to her hypoxia Plan: This is a pleasant 65 years old female who presents with shortness of breath and coughing. We will and inhaled steroids and bronchodilators We will check another troponin and d-dimer. I discussed with the patient if the d-dimer positive for going to do CTA of the chest with contrast, risks of ALLERGY and nephrotoxicity with could be irreversible are explained for the patient in details and she verbalized understanding and acceptance Give gentle hydration until tomorrow Pulmonary consult Labs and medication were reviewed.. Continue same treatment. Continue with symptomatic treatment. Resume home medication. Monitor lytes and vitals. DVT and GI prophylaxis. Further recommendations depends on the clinical course of the patient DVT prophylaxis: Subcutaneous heparin GI Prophylaxis: Pepcid PT/OT: Pending Prognosis is guarded
[2021-08-16] MEDS: SODIUM CHLORIDE 0.9% 1,000 ML IV SCH (16:52)
--- NOTE | 2021-08-16 18:27 | CT ---
EXAMINATION TYPE: CT angio chest CT DLP: 329.4 mGycm, Automated exposure control for dose reduction was used. DATE OF EXAM: 08/16/2021 6:02 PM COMPARISON: Chest radiograph from same day. Multiple CTs of the chest with most recent on 10/26/2018 CLINICAL INDICATION:Female, 65 years old with history of sob elevated dimer; SOB, elevated d-dimer TECHNIQUE/CONTRAST: CTA scan of the thorax is performed with IV Contrast, patient injected with 100 mL of Isovue 370, pul monary embolism protocol. MIP images are created and reviewed. FINDINGS: Pulmonary Artery: There is no evidence for a filling defect within the pulmonary vasculature to sugge st acute pulmonary embolism. The pulmonary artery is of normal size. Lungs/Pleura: No evidence of focal consolidation, pleural effusion or pneumothorax. Severe centrilobu lar emphysema changes are most proximal lung apices. Streaky atelectasis/scarring is present in the l naida bases. Airway: Mild bronchial wall thickening is seen most pronounced in the lung bases. Heart: Within normal limits for size. Mild coronary artery atherosclerosis. Vasculature: No evidence of aortic aneurysm. Atherosclerosis of the arterial vasculature. Mediastinum: No gross evidence of adenopathy. Musculoskeletal: No acute osseous abnormalities. Multilevel disc degeneration changes throughout the spine. Soft Tissues: Unremarkable. Lower neck: No significant findings. Upper Abdomen: No significant findings. IMPRESSION: 1. No evidence of pulmonary embolism. 2. Severe COPD/emphysema changes.
--- NOTE | 2021-08-16 18:53 | US ---
EXAMINATION TYPE: US venous doppler duplex LE DATE OF EXAM: 08/16/2021 6:34 PM COMPARISON: NONE CLINICAL HISTORY: leg swelling. edema SIDE PERFORMED: Bilateral TECHNIQUE: The lower extremity deep venous system is examined utilizing real time linear array sonog jaya with graded compression, doppler sonography and color-flow sonography. VESSELS IMAGED: Common Femoral Vein Deep Femoral Vein Greater Saphenous Vein * Femoral Vein Popliteal Vein Small Saphenous Vein * Proximal Calf Veins (* superficial vessels) Grayscale, color doppler, spectral doppler imaging performed of the deep veins of the lower extremiti es. There is normal flow, compressibility, vascular waveforms. Right Leg: Negative for DVT Left Leg: Negative for DVT IMPRESSION: No evidence of DVT of the bilateral lower extremities.
[2021-08-16] MEDS: BUDESONIDE 1 MG/2 ML NEBU INHALATION SCH (19:32)
[2021-08-16] MEDS: IPRATROPIUM-ALBUTEROL 3 ML NEB INHALATION PRN (19:32)
[2021-08-16] MEDS: HEPARIN SODIUM,PORCINE/PF 5,000 UNIT/0.5 ML SYRINGE SQ SCH (20:08)
[2021-08-16] MEDS: FAMOTIDINE 20 MG/2 ML VIAL IV SCH (20:08)
[2021-08-16] MEDS ORDERED: methylPREDNISolone SOD SUCCI 125 MG/2 ML VIAL IV STA (21:12)
[2021-08-17] MEDS: SODIUM CHLORIDE 0.9% 1,000 ML IV SCH (05:12)
[2021-08-17] MEDS: BUDESONIDE 1 MG/2 ML NEBU INHALATION SCH ×2 (08:39→19:20)
[2021-08-17] MEDS: IPRATROPIUM-ALBUTEROL 3 ML NEB INHALATION PRN ×2 (08:39→19:20)
[2021-08-17] MEDS: HEPARIN SODIUM,PORCINE/PF 5,000 UNIT/0.5 ML SYRINGE SQ SCH ×2 (09:23→20:57)
[2021-08-17] MEDS: FAMOTIDINE 20 MG/2 ML VIAL IV SCH ×2 (09:23→20:56)
--- NOTE | 2021-08-17 10:01 | P.CNPUL ---
History of Present Illness Consult date: 08/17/21 Requesting physician: Haseeb Ball Reason for consult: dyspnea, COPD Chief complaint: Shortness of breath, weakness History of present illness: This is a very pleasant 65-year-old female patient who follows with Dr. Fitzgerald as her primary care provider. No significant past medical history. She does have a history of chronic and ongoing tobacco dependence of approximately 50 years. She has not been seen by a customs director in the outpatient setting. She was here back in 2019 for suspected COPD exacerbation. She presented to the emergency room yesterday with complaints of shortness of breath, dizziness and weakness. White count 7.8. Hemoglobin 16.2. A site 0.8. D-dimer 0.69. Sodi um 136. Potassium 5.1. Bicarb 32. BUN 18. Creatinine 0.84. Troponins negative 3. Glucose 108. ProBNP 957. Urinalysis clean. Chest x-ray reveals bibasilar place like atelectasis. Persistent fullness in the left perihilar region. EKG reveals sinus rhythm with some T-wave inversions in the anterior leads. CT angiogram ruled out pulmonary embolism. There is evidence of severe COPD/emphysema. No focal consolidation, pleural effusion or pneumothorax. Some streaky atelectasis/scarring in the lung bases. Dopplers of the lower extremity negative for DVT. She was initiated on DuoNeb inhalations, Pulmicort inhalations. She is seen today in follow-up in consultation on the regular [facility] floor. She is currently sitting up in bed. Awake and alert in no acute distress. She is maintaining O2 saturations in the 90s on 4 L/m per nasal cannula. Normal saline at 75 ML's per hour. She denies any worsening shortness of breath cough or congestion. She is feeling quite a bit better today compared to yesterday. Feeling back to her baseline. Review of Systems REVIEW OF SYSTEMS: CONSTITUTIONAL: Positive for generalized weakness. Denies any recent signi ficant weight loss or weight gain. EYES: Denies change in vision. EARS, NOSE, MOUTH, THROAT: Denies headaches, denies sore throat. CARDIOVASCULAR: Denies chest pain, palpitations or syncopal episodes. RESPIRATORY: Positive for shortness of breath, cough, congestion no hemoptysis. GASTROINTESTINAL: Denies change in appetite, denies abdominal pain GENITOURINARY: Denies hematuria, denies infections. MUSKULOSKELETAL: Denies pain, denies swelling. INTEGUMENTARY: Denies rash, denies eczema. NEUROLOGICAL: Denies recent memory loss, no recent seizure activity. PSYCHIATRIC: Denies anxiety, denies depression. HEMATOLOGIC/LYMPHATIC: Denies anemia, denies enlarged lymph nodes. Past Medical History Past Medical History: COPD Additional Past Medical History / Comment(s): HAD EMERGENCY APPENDECTOMY 06/05/15. History of Any Multi-Drug Resistant Organisms: None Reported Past Surgical History: Appendectomy, Tubal Ligation Past Anesthesia/Blood Transfusion Reactions: No Reported Reaction Past Psychological History: No Psychological Hx Reported Smoking Status: Former smoker Past Alcohol Use History: None Reported Past Drug Use History: None Reported - Past Family History Mother History Unknown: Yes Family Medical History: Cancer Father Family Medical History: Cancer Medications and Allergies Home Medications Medication Instructions Recorded Confirmed Type Multivit-Min/Iron/Folic/Lutein 1 tab PO HS 08/01/15 08/16/21 History [Centrum Silver Women Tablet] Glucosamine/Chondr Dailey A Sod [Osteo 1 tab PO HS 08/16/21 08/16/21 History Bi-Flex Caplet] Allergies Allergy/AdvReac Type Severity Reaction Status Date / Time No Known Allergies Allergy Verified 08/16/21 13:01 Physical Exam Vitals: Vital Signs Temp Pulse Pulse Pulse Resp BP BP 08/17/21 09:26 18 08/17/21 08:49 84 08/17/21 08:41 08/17/21 08:39 91 08/17/21 06:43 98 F 88 18 111/67 08/17/21 01:29 98.6 F 92 16 105/68 08/16/21 19:44 89 08/16/21 19:35 83 08/16/21 19:20 97.4 F L 93 16 105/71 08/16/21 15:34 08/16/21 14:35 98.1 F 106 H 15 107/63 08/16/21 14:10 97.7 F 86 20 104/61 08/16/21 12:56 86 20 122/80 08/16/21 11:28 97.7 F 08/16/21 11:25 71 20 122/73 Pulse Ox 08/17/21 09:26 08/17/21 08:49 08/17/21 08:41 94 L 08/17/21 08:39 08/17/21 06:43 91 L 08/17/21 01:29 90 L 08/16/21 19:44 08/16/21 19:35 94 L 08/16/21 19:20 95 08/16/21 15:34 95 08/16/21 14:35 93 L 08/16/21 14:10 95 08/16/21 12:56 95 08/16/21 11:28 08/16/21 11:25 96 Intake and Output 08/16/21 08/17/21 08/17/21 22:59 06:59 14:59 Other: Voiding Method Toilet # Voids 1 1 0 GENERAL EXAM: Alert, active, pleasant 65-year-old female patient, on 4 L nasal cannula, comfortable in no apparent distress. HEAD: Normocephalic. EYES: Normal reaction of pupils, equal size. NOSE: Clear with pink turbinates. THROAT: No erythema or exudates. NECK: No masses, no JVD. CHEST: No chest wall deformity. LUNGS: Equal air entry with no crackles, wheeze, rhonchi or dullness. Diminished CVS: S1 and S2 normal with no audible murmur, regular rhythm. ABDOMEN: No hepatosplenomegaly, normal bowel sounds, no guarding or rigidity. SPINE: No scoliosis or deformity SKIN: No rashes CENTRAL NERVOUS SYSTEM: No focal deficits, tone is normal in all 4 extremities. EXTREMITIES: There is no peripheral edema. No clubbing, no cyanosis. Perip heral pulses are intact. Results - Laboratory Findings CBC and BMP: 08/16/21 10:12 08/16/21 10:12 PT/INR, D-dimer PT 10.6 sec (9.0-12.0) 08/16/21 10:12 INR 1.0 (<1.2) 08/16/21 10:12 D-Dimer 0.69 mg/L FEU (<0.60) H 08/16/21 15:50 Abnormal lab findings: Abnormal Labs 08/16/21 08/16/21 08/16/21 10:12 10:12 15:50 Hgb 16.2 H Hct 49.5 H MCV 101.8 H Lymphocytes # 0.8 L D-Dimer 0.69 H Sodium 136 L Carbon Dioxide 32 H BUN 18 H Glucose 108 H Alkaline Phosphatase 37 L - Diagnostic Findings Chest x-ray: image reviewed CT scan - chest: image reviewed Assessment and Plan Assessment: 1 Acute hypoxemic respiratory failure secondary to an acute exacerbation of chronic obstructive pulmonary disease 2 Generalized weakness secondary to above 3 Chronic and ongoing tobacco dependence Plan: The patient was seen and evaluated CAT scan, chest x-ray and labs reviewed No evidence of pneumonia Could be discharged home Recommend a Medrol Dosepak Initiate Symbicort, albuterol HFA Evaluate for possible home oxygen Follow up in our office for full pulmonary function testing I have personally seen and examined the patient, performed the documentation and the assessment and plan as written. Number of minutes spent on the visit: 20.
[2021-08-17 11:49] LABS: Magnesium 1.9 mg/dL (1.5-2.4)
--- NOTE | 2021-08-17 12:01 | P.CRDCN ---
History of Present Illness Consult date: 08/17/21 Consult reason: sycope History of present illness: This is Leland Stevens NP, I'm dictating on behalf of Dr. Wolfe's H&P and A&P The patient was interviewed and examined. HPI: [Patient is a pleasant 65-year-old female who initially presented to the hospital with complaints of dizziness, weakness, shortness of breath, chest heaviness, and passing out. Patient reports a prior hospitalization, she was at home attempting to the bathroom, when she states she felt like she was going to black out. She states she had very dizzy, weak, short of breath, felt some chest heaviness, and went down to the floor. Patient reported that after laying on the floor for some time, she felt better and was able to get up. This is what prompted her to present to the hospital for evaluation. The emergency department patient was found to have slight T-wave inversions but otherwise normal EKG. Troponins were negative. Patient was subsequently admitted with a cardiology consultation for complaints of chest heaviness and syncope. Patient has a past medical history that includes COPD. Patient's past surgical history that includes appendectomy, and tubal ligation. Patient reports that she is a former smoker, denies current alcohol or illicit substance use. Patient was interviewed and examined while lying in the bed today. Patient reports that she feels much better today. She has not had any incidence of syncope or dizziness while in the hospital.] ROS: [No fever, chills, or rigors] [no cough, phlegm, or expectoration] [no nausea, vomiting, or diarrhea] [no hematuria, dysuria] [no musculoskelatal complaints] [no strokes or seizures] [no skin lesions] EXAMINATION: GENERAL: Well-appearing, well-nourished and in no acute distress. NECK: Supple without JVD or thyromegaly. LUNGS: Breath sounds clear to auscultation bilaterally. Respiration equal and unlabored. No wheezes, rales or rhonchi. HEART: Regular rate and rhythm without murmurs, rubs or gallops. S1 and S2 heard. EXTREMITIES: Normal range of motion, no edema. No clubbing or cyanosis. Peripheral pulses intact and strong. REVIEW OF LABS, ECG & MEDICAL DATA: LABS: White count 7.8, hemoglobin 16.2, platelets 186, sodium 136, potassium 5.1, B1 18, creatinine 0.84, magnesium 1.9, troponin 3-less than 0.012; BNP 957, d-dimer 0.68 EKG: Normal sinus rhythm with T-wave abnormality in leads 3, aVF IMAGING: Chest x-ray dated 08/16/2021 demonstrates bibasilar platelike atelectasis, persistent fullness of the left perihilar region, consider follow- up CT to confirm stability of previous right subpleural nodularity reported by CT exam. CT angiogram dated 08/16/2021 demonstrates no evidence of pulmonary embolism, severe COPD/emphysema changes. Venous Doppler study completed 08/16/2021 demonstrates no evidence of DVT of the bilateral lower extremities. VITALS: Temp 98, pulse 88, respirations 18, blood pressure 111/67, O2 saturation 94% on 4 L via nasal cannula IMPRESSION/PLAN: [1. Vagal syncope-patient should take time when getting up out of bed, by sitting for approximately 1 minute, before standing. Patient should evaluate how she feels before standing and walking anywhere, especially after sleeping overnight. We'll repeat an EKG, which does demonstrate normal sinus rhythm. We'll get a another troponin this morning. If negative, we will sign off on the patient. 2. COPD exacerbation-follow pulmonary recommendations.] Thank you for the consult and allowing us to participate in the care of this patient. If further recommendations are needed, please do not hesitate to reach out and contact us. Past Medical History Past Medical History: COPD Additional Past Medical History / Comment(s): HAD EMERGENCY APPENDECTOMY 06/05/15. History of Any Multi-Drug Resistant Organisms: None Reported Past Surgical History: Appendectomy, Tubal Ligation Past Anesthesia/Blood Transfusion Reactions: No Reported Reaction Past Psychological History: No Psychological Hx Reported Smoking Status: Former smoker Past Alcohol Use History: None Reported Past Drug Use History: None Reported - Past Family History Mother History Unknown: Yes Family Medical History: Cancer Father Family Medical History: Cancer Medications and Allergies Home Medications Medication Instructions Recorded Confirmed Type Multivit-Min/Iron/Folic/Lutein 1 tab PO HS 08/01/15 08/16/21 History [Centrum Silver Women Tablet] Glucosamine/Chondr Dailey A Sod [Osteo 1 tab PO HS 08/16/21 08/16/21 History Bi-Flex Caplet] Budesonide/Formoterol Fumarate 1 puff IH BID #10.2 gm 08/17/21 Rx [Symbicort 160-4.5 Mcg Inhaler] Ipratropium-Albuterol Nebulize 3 ml INHALATION QID #120 ml 08/17/21 Rx [Duoneb 0.5 mg-3 mg/3 ml Soln] methylPREDNISolone Dose Pack 4 mg PO DIRECTED #1 packet 08/17/21 Rx [Medrol Dose Pack] Allergies Allergy/AdvReac Type Severity Reaction Status Date / Time No Known Allergies Allergy Verified 08/16/21 13:01 Physical Exam Vitals: Vital Signs Temp Pulse Pulse Pulse Resp BP BP 08/17/21 11:25 08/17/21 11:18 08/17/21 11:02 08/17/21 10:28 08/17/21 09:26 18 08/17/21 08:49 84 08/17/21 08:41 08/17/21 08:39 91 08/17/21 06:43 98 F 88 18 111/67 08/17/21 01:29 98.6 F 92 16 105/68 08/16/21 19:44 89 08/16/21 19:35 83 08/16/21 19:20 97.4 F L 93 16 105/71 08/16/21 15:34 08/16/21 14:35 98.1 F 106 H 15 107/63 08/16/21 14:10 97.7 F 86 20 104/61 08/16/21 12:56 86 20 122/80 Pulse Ox Pulse Ox Pulse Ox Pulse Ox 08/17/21 11:25 78 L 08/17/21 11:18 83 L 08/17/21 11:02 95 92 L 08/17/21 10:28 83 L 08/17/21 09:26 08/17/21 08:49 08/17/21 08:41 94 L 08/17/21 08:39 08/17/21 06:43 91 L 08/17/21 01:29 90 L 08/16/21 19:44 08/16/21 19:35 94 L 08/16/21 19:20 95 08/16/21 15:34 95 08/16/21 14:35 93 L 08/16/21 14:10 95 08/16/21 12:56 95 Intake and Output 08/16/21 08/17/21 08/17/21 22:59 06:59 14:59 Other: Voiding Method Toilet # Voids 1 1 0 Results 08/16/21 10:12 08/16/21 10:12 Cardiac Enzymes 08/16/21 08/17/21 Range/Units 15:50 06:52 Troponin I <0.012 <0.012 (0.000-0.034) ng/mL Current Medications Generic Name Dose Route Start Last Admin Trade Name Freq PRN Reason Stop Dose Admin Acetaminophen 650 mg 08/16/21 12:05 Acetaminophen Tab 325 Mg Tab PO Q6HR PRN Mild Pain or Fever > 100.5 Albuterol/Ipratropium 3 ml 08/16/21 15:34 08/17/21 08:39 Ipratropium-Albuterol 3 Ml Neb INHALATION 3 ml RT-Q2H PRN Administration Shortness Of Breath Or Wheezing Budesonide 1 mg 08/16/21 20:00 08/17/21 08:39 Budesonide 1 Mg/2 Ml Nebu INHALATION 1 mg RT-BID DELBERT Administration Famotidine 20 mg 08/16/21 21:00 08/17/21 09:23 Famotidine 20 Mg/2 Ml Vial IV 20 mg Q12HR DELBERT Administration Heparin Sodium (Porcine) 5,000 unit 08/16/21 21:00 08/17/21 09:23 Heparin Sodium,Porcine/Pf 5,000 Unit/0.5 Ml Syringe SQ 5,000 unit Q12HR DELBERT Administration Naloxone HCl 0.2 mg 08/16/21 12:05 Naloxone 0.4 Mg/Ml 1 Ml Vial IV Q2M PRN Opioid Reversal Intake and Output 08/16/21 08/17/21 08/17/21 22:59 06:59 14:59 Other: Voiding Method Toilet # Voids 1 1 0 08/16/21 10:12 08/16/21 10:12
[2021-08-17 12:47] LABS: Albumin/Globulin Ratio 1.74 (1.60-3.17); Anion Gap 8.5 mmol/L (10.00-18.00); BUN/Creat Ratio 18.38 Ratio (12.00-20.00); Blood Urea Nitrogen 14.7 mg/dL (9.0-27.0); Calcium 9.5 mg/dL (8.7-10.3); Carbon Dioxide 28.5 mmol/L (20.0-27.5); Globulin 2.3 g/dL (1.6-3.3); Non-African American GFR(CKD) 76.8 (60.0-200.0); Potassium 6.1 mmol/L (3.5-5.5); Total Bilirubin 0.3 mg/dL (0.30-1.20); Total Protein 6.3 g/dL (6.2-8.2)
[2021-08-17] MEDS ORDERED: SODIUM POLYSTYRENE SULFONATE 15 GM/60 ML BOTTLE PO STA (15:57)
[2021-08-17 17:04] LABS: Glucose,Whole Blood 111 mg/dL (75-99)
[2021-08-17 17:37] LABS: African American GFR (CKD) 80 (>60 ml/min/1.73 sqM); Anion Gap 2 mmol/L; Blood Urea Nitrogen 18 mg/dL (7-17); Calcium 8.5 mg/dL (8.4-10.2); Carbon Dioxide 33 mmol/L (22-30); Chloride 100 mmol/L (98-107); Glucose 110 mg/dL (74-99); Non-African American GFR(CKD) 69 (>60 ml/min/1.73 sqM); Potassium 4.1 mmol/L (3.5-5.1); Sodium 135 mmol/L (137-145)
[2021-08-17] MEDS: methylPREDNISolone SOD SUCCI 125 MG/2 ML VIAL IV SCH (18:01)
[2021-08-17] MEDS: INSULIN ASPART (NovoLOG) 100 UNIT/ML VIAL SQ SCH ×2 (18:01→20:55)
--- NOTE | 2021-08-17 18:57 | PN ---
PROGRESS NOTE DATE OF SERVICE: 08/17/2021 This 65-year-old woman who was admitted with COPD, acute exacerbation, also had hyperkalemia. Potassium has climbed up to 6.1 today. No chest pain. No palpitations. Home O2 is also being arranged because of hypoxia. PHYSICAL EXAMINATION: Pulse is 101, blood pressure 96/50, respiration 18. CARDIOVASCULAR: S1, S2 muffled. CHEST: Bilateral scattered rhonchi and crackles. ABDOMEN: Soft. NERVOUS SYSTEM: No focal deficit. LABS: Potassium 6.1. Creatinine is normal. ASSESSMENT: 1. Chronic obstructive pulmonary disease, acute exacerbation. 2. Chest pressure. 3. Hyperkalemia. 4. Multiple lung nodules. 5. History of nicotine dependence. RECOMMENDATIONS AND DISCUSSION: I recommend to continue current medications, continue with the monitoring, symptomatic treatment. Nephrology evaluation. Repeat labs. I also recommend some Kayexalate. Prognosis guarded. Further recommendations to follow. MMODL / IJN: [id number] /
[2021-08-17 20:20] LABS: Glucose,Whole Blood 149 mg/dL (75-99)
[2021-08-18] MEDS: methylPREDNISolone SOD SUCCI 125 MG/2 ML VIAL IV SCH ×3 (00:09→08:02)
[2021-08-18 06:43] VITALS: BP 100/61; RESP 18; TEMP 98.3
[2021-08-18 07:02] LABS: Glucose,Whole Blood 137 mg/dL (75-99)
[2021-08-18] MEDS: HEPARIN SODIUM,PORCINE/PF 5,000 UNIT/0.5 ML SYRINGE SQ SCH (08:01)
[2021-08-18] MEDS: FAMOTIDINE 20 MG/2 ML VIAL IV SCH (08:06)
[2021-08-18] MEDS: INSULIN ASPART (NovoLOG) 100 UNIT/ML VIAL SQ SCH ×2 (08:10→13:44)
[2021-08-18] MEDS: IPRATROPIUM-ALBUTEROL 3 ML NEB INHALATION PRN (08:29)
[2021-08-18] MEDS: BUDESONIDE 1 MG/2 ML NEBU INHALATION SCH (08:29)
[2021-08-18 08:43] VITALS: PULSE 82
[2021-08-18 11:41] LABS: Basophils # (A) 0.01 X 10*3/uL (0.00-0.10); Basophils % (A) 0.1 %; Eosinophils # (A) 0 X 10*3/uL (0.04-0.35); Eosinophils % (A) 0 %; HCT 48.6 % (37.2-46.3); HGB 15.3 g/dL (12.0-15.0); Immature Grans, Automated 0.3 %; Lymphocytes % (A) 7.6 %; MCH 31.9 pg (27.0-32.0); MCHC 31.5 g/dL (32.0-37.0); MCV 101.3 fL (80.0-97.0); Mean Platelet Volume 10.5 fL (9.5-12.2); Monocytes # (A) 0.16 X 10*3/uL (0.20-1.00); NRBC Per 100 WBC 0 /100 WBCS (0.0-0.0); Neutrophils # (A) 7.11 X 10*3/uL (1.80-7.70); Platelet Count 193 X 10*3/uL (140-440)
[2021-08-18 11:47] LABS: Glucose,Whole Blood 157 mg/dL (75-99)
[2021-08-18 12:03] LABS: African American GFR (CKD) 96.9 (60.0-200.0); Anion Gap 10.2 mmol/L (10.00-18.00); BUN/Creat Ratio 23.59 Ratio (12.00-20.00); Blood Urea Nitrogen 17.6 mg/dL (9.0-27.0); Calcium 9.2 mg/dL (8.7-10.3); Carbon Dioxide 29.8 mmol/L (20.0-27.5); Non-African American GFR(CKD) 83.6 (60.0-200.0); Potassium 4.8 mmol/L (3.5-5.5)
--- NOTE | 2021-08-18 12:33 | P.PN ---
Subjective Progress Note Date: 08/18/21 Principal diagnosis: Shortness of breath. This is a very pleasant 65-year-old female patient who follows with Dr. Fitzgerald as her primary care provider. No significant past medical history. She does have a history of chronic and ongoing tobacco dependence of approximately 50 yea rs. She has not been seen by a metallurgical laboratory assistant in the outpatient setting. She was here back in 2019 for suspected COPD exacerbation. She presented to the emergency room yesterday with complaints of shortness of breath, dizziness and weakness. White count 7.8. Hemoglobin 16.2. A site 0.8. D-dimer 0.69. Sodium 136. Potassium 5.1. Bicarb 32. BUN 18. Creatinine 0.84. Troponins negative 3. Glucose 108. ProBNP 957. Urinalysis clean. Chest x-ray reveals bibasilar place like atelectasis. Persistent fullness in the left perihilar region. EKG reveals sinus rhythm with some T-wave inversions in the anterior leads. CT angiogram ruled out pulmonary embolism. There is evidence of severe COPD/emphysema. No focal consolidation, pleural effusion or pneumothorax. Some streaky atelectasis/scarring in the lung bases. Dopplers of the lower extremity negative for DVT. She was initiated on DuoNeb inhalations, Pulmicort inhalations. She is seen today in follow-up in consultation on the regular medical floor. She is currently sitting up in bed. Awake and alert in no acute distress. She is maintaining O2 saturations in the 90s on 4 L/m per nasal cannula. Normal saline at 75 ML's per hour. She denies any worsening shortness of breath cough or congestion. She is feeling quite a bit better today compared to yesterday. Feeling back to her baseline. Progress note dated 08/18/2021. This is a 65-year-old female again seen in room 630. The patient is suspected to have underlying COPD from ongoing and significant tobacco use. The patient has never been seen by metallurgical laboratory assistant. We do recommend follow-up after discharge, and our office, for a 6 minute walk distance, and full PFTs. Home O2 has been arranged. She's currently on 4 L. White count 7.9, hemoglobin 15.3, hematocrit 48.6, and platelet count 193,000. Sodium 139, potassium 4.8, chlorides 99, CO2 30, BUN 17.6 and creatinine 0.7. Objective - Vital Signs Vital signs: Vital Signs Temp 98.3 F 08/18/21 06:37 Pulse 82 08/18/21 08:42 Resp 18 08/18/21 08:20 BP 100/61 08/18/21 06:37 Pulse Ox 92 L 08/18/21 08:33 Intake & Output 08/17/21 08/18/21 08/18/21 18:59 06:59 18:59 Intake Total 360 120 Balance 360 120 Intake: Oral 360 120 Other: Voiding Method Toilet Toilet Toilet # Voids 1 2 - Exam No acute distress, oriented 3. No obvious respiratory distress, conversational dyspnea, or audible wheezing. HEENT examination is grossly unremarkable. Neck supple. Full range of motion. No adenopathy thyromegaly or neck vein distention. Cardiovascular examination reveals regular rhythm rate. S1-S2 normal. No S3 or S4. No discernible murmur noted. Heart rate 82 bpm. Lungs reveal diminished bilateral breath sounds. Scattered rhonchi are noted. No distinct wheezes. No crackles. Breath sounds equal bilaterally. 4 L satu ration is 92%. Abdomen soft bowel sounds are heard. No masses or tenderness. Extremities are intact. No cyanosis clubbing or edema. Skin is without rash or lesion. Neurologic examination is brief but nonfocal. - Labs CBC & Chem 7: 08/18/21 06:53 08/18/21 06:53 Labs: Abnormal Lab Results - Last 24 Hours (Table) 08/17/21 08/17/21 08/17/21 Range/Units 06:52 16:44 17:02 Hgb (12.0-15.0) g/dL Hct (37.2-46.3) % MCV (80.0-97.0) fL MCHC (32.0-37.0) g/dL Lymphocytes # (0.90-5.00) X 10*3/uL Monocytes # (0.20-1.00) X 10*3/uL Eosinophils # (0.04-0.35) X 10*3/uL Sodium 135 L (137-145) mmol/L Potassium 6.1 H* (3.5-5.5) mmol/L Carbon Dioxide 28.5 H 33 H (20.0-27.5) mmol/L Anion Gap 8.50 L (10.00-18.00) mmol/L BUN 18 H (7-17) mg/dL BUN/Creatinine Ratio (12.00-20.00) Ratio Glucose 163 H 110 H (70-110) mg/dL POC Glucose (mg/dL) 111 H (75-99) mg/dL 08/17/21 08/18/21 08/18/21 Range/Units 20:19 06:40 06:53 Hgb 15.3 H (12.0-15.0) g/dL Hct 48.6 H (37.2-46.3) % MCV 101.3 H (80.0-97.0) fL MCHC 31.5 L (32.0-37.0) g/dL Lymphocytes # 0.60 L (0.90-5.00) X 10*3/uL Monocytes # 0.16 L (0.20-1.00) X 10*3/uL Eosinophils # 0 L (0.04-0.35) X 10*3/uL Sodium (137-145) mmol/L Potassium (3.5-5.5) mmol/L Carbon Dioxide (20.0-27.5) mmol/L Anion Gap (10.00-18.00) mmol/L BUN (7-17) mg/dL BUN/Creatinine Ratio (12.00-20.00) Ratio Glucose (70-110) mg/dL POC Glucose (mg/dL) 149 H 137 H (75-99) mg/dL 08/18/21 08/18/21 Range/Units 06:53 11:45 Hgb (12.0-15.0) g/dL Hct (37.2-46.3) % MCV (80.0-97.0) fL MCHC (32.0-37.0) g/dL Lymphocytes # (0.90-5.00) X 10*3/uL Monocytes # (0.20-1.00) X 10*3/uL Eosinophils # (0.04-0.35) X 10*3/uL Sodium (137-145) mmol/L Potassium (3.5-5.5) mmol/L Carbon Dioxide 29.8 H (20.0-27.5) mmol/L Anion Gap (10.00-18.00) mmol/L BUN (7-17) mg/dL BUN/Creatinine Ratio 23.59 H (12.00-20.00) Ratio Glucose 146 H (70-110) mg/dL POC Glucose (mg/dL) 157 H (75-99) mg/dL Assessment and Plan Assessment: Acute hypoxemic respiratory failure, secondary to COPD with COPD exacerbation. Generalized weakness. Chronic and ongoing tobacco dependence syndrome. Plan: Plan dated 08/18/2021. The patient was assessed for home O2. It has been arranged. We do recommend follow-up in our office. She will need a 6 minute walk test, and a full PFTs. We encourage her to stop smoking. Additional recommendations and suggestions a re forthcoming. The patient is being considered for possible discharge. We will leave that up to the primary. No additional recommendations are made. Prognosis is guarded. Time with Patient: Less than 30
--- NOTE | 2021-08-18 20:25 | DS ---
DISCHARGE SUMMARY DATE OF DISCHARGE: 08/18/2021 FINAL DIAGNOSIS: 1. Chronic obstructive pulmonary disease, acute exacerbation. 2. Hyperkalemia, improved. 3. Multiple lung nodules. 4. History of nicotine dependence. DISCHARGE DISPOSITION: The patient will be discharged in stable condition with guarded prognosis. HISTORY OF PRESENT ILLNESS: This 65-year-old woman was admitted with COPD, acute exacerbation, and was treated with bronchodilators. Pulmonary cleared the patient for discharge. The patient's hyperkalemia responded to Kayexalate; potassium 4.8. On exam, vitals stable. CARDIOVASCULAR: S1, S2 muffled. RESPIRATION: A few scattered rhonchi. Home O2 is being arranged because room-air pulse ox after ambulation was 70%. DISCHARGE ADVICE AND MEDICATIONS: I recommend that the patient follow up with primary physician and Pulmonology. Home O2 has been arranged as before. Otherwise, continue with Medrol Dosepak, Symbicort, DuoNeb. Please refer to the discharge medication reconciliation sheet for list of medications. MMODL / IJN: [id number] /
== END 2021-08-18 14:05 | disposition home or self-care (01) ==
LOC: EC 09:25 → 6NMEDSUR 11:53
PROVIDERS: ADMIT Internal Medicine; ATTEND Internal Medicine
DX: J43.9 Emphysema, unspecified (principal); J96.01 Acute respiratory failure with hypoxia; E87.5 Hyperkalemia; J98.11 Atelectasis; D75.1 Secondary polycythemia; R55 Syncope and collapse; R91.8 Other nonspecific abnormal finding of lung field; F17.200 Nicotine dependence, unspecified, uncomplicated; Z90.49 Acquired absence of other specified parts of digestive tract; Z98.51 Tubal ligation status; Z80.9 Family history of malignant neoplasm, unspecified; Z71.6 Tobacco abuse counseling
CPT/HCPCS: 96376 ×2; 96361 ×2; 96372 ×3; 96374; 96375; 99285; 36415; 94640 ×4; 94760 ×2; 85379; 83880; 80053 ×2; 80048 ×2; 83605; 83735 ×2; 84484 ×2; 85025 ×2; 85610; 85730; 81003; 71046; 93970; 71275; G0378 ×3; J2930 ×3; Q9967; J1644 ×3

== ENCOUNTER → 2022-04-15 | Outpatient (CLI) | payer MEDICARE ==
--- NOTE | 2022-04-15 12:29 | US ---
EXAMINATION TYPE: US arterial LE single level DATE OF EXAM: 04/15/2022 7:41 AM CLINICAL HISTORY: I73.9 PERIPHERAL VASCULAR DISEASE, UNSPECIFIED. PVD Doppler Waveforms: Right: Multiphasic Left: Multiphasic Ankle-Brachial Indices: Right: 1.07 Left: 1.03 Toe Brachial Indices: Right: 0.83 Left: 0.71 IMPRESSION: 1. Normal AICHA and TBI bilaterally.
== END | disposition home or self-care (01) ==
LOC: RADUSWWP 07:10
PROVIDERS: ATTEND Family Medicine
DX: I73.9 Peripheral vascular disease, unspecified (principal)
CPT/HCPCS: 93922

== ENCOUNTER → 2022-05-08 | Outpatient (CLI) | payer MEDICARE ==
--- NOTE | 2022-05-08 16:34 | BD ---
EXAMINATION TYPE: Axial Bone Density DATE OF EXAM: 05/08/2022 COMPARISON: NONE CLINICAL HISTORY: 66 years year old Female. ICD-10 CODE: Z78.0 ASYMPTOMATIC MENOPAUSAL STA Height: 63.5 IN Weight: 189 LBS RISK FACTORS HISTORY OF: Active: YES Postmenopausal woman: AGE 49 MEDICATIONS: Additional Medications: MULTI VIT, ASPIRIN, POTASIUM, BIOFLEX, EXAM MEASUREMENTS: Bone mineral densitometry was performed using the [employer] System. Bone mineral density as measured about the Lumbar spine is: ----- L1-L4(G/cm2): 1.233 T Score Values are as follows: ----- L1: -0.7 ----- L2: -0.3 ----- L3: 0.5 ----- L4: 1.6 ----- L1-L4: 0.4 Bone mineral density BASELINE Bone mineral density about the R hip (g/cm2): 0.831 Bone mineral density about the L hip (g/cm2): 0.929 T Score values are as follows: -----R Neck: -1.5 -----L Neck: -0.8 -----R Total: -0.1 -----L Total: 0.2 Bone mineral density BASELINE FRAX%s: The graph provided illustrates a 9.0 chance for a major osteoporotic fx and a 1.1 chance for the hips probability for fx in 10 years time. IMPRESSION: Osteopenia (T Score between -2.5 and -1). There is slightly increased risk of fracture and the patient may be considered for treatment. Re-Screen 2-5 years. NOTE: T-SCORE=SD OF THE YOUNG ADULT MEAN.
--- NOTE | 2022-05-09 08:42 | MM ---
Reason for Exam: Screening (asymptomatic). Last mammogram was performed 6 year(s) and 11 month(s) ago. Patient History: Menarche at age 11. First Full-Term at age 16. Postmenopausal. Maternal aunt had breast cancer, age 35. Mother had breast cancer, age 76. Risk Values: Dee [place] 5 year model risk: 3.1%. NCI Lifetime model risk: 10.5%. Prior Study Comparison: 06/22/2015 Bilateral Screening Mammogram, [facility]. Tissue Density: The breast tissue is heterogeneously dense. This may lower the sensitivity of mammography. Findings: Analyzed By CAD. There is no suspicious group of microcalcifications or new suspicious mass in either breast. Benign vascular calcifications within both breasts. Overall Assessment: Benign, BI-RAD 2 Management: Screening Mammogram of both breasts in 1 year. A clinical breast exam by your physician is recommended on an annual basis and results should be correlated with mammographic findings. Electronically signed and approved by: oJhnnie Cabezas D.O.
== END | disposition home or self-care (01) ==
LOC: RADMAMWWP 10:24
PROVIDERS: ATTEND Family Medicine
DX: Z12.31 Encounter for screening mammogram for malignant neoplasm of breast (principal); M85.851 Other specified disorders of bone density and structure, right thigh; Z78.0 Asymptomatic menopausal state; Z80.3 Family history of malignant neoplasm of breast
CPT/HCPCS: 77063; 77067; 77080

== ENCOUNTER → 2022-11-20 | Outpatient (CLI) | payer MEDICARE ==
--- NOTE | 2022-11-20 11:59 | CTL ---
EXAMINATION TYPE: CT Low Dose Lung DATE OF EXAM: 11/20/2022 10:10 AM CLINICAL INDICATION:Female, 67 years old with history of Z87.891 PERSONAL HISTORY OF NICOTINE DEPENDE NCE; smoker , history of tobacco use. COMPARISON: 08/16/2021 TECHNIQUE: Multiple axial non-contrast scans were obtained from approximately the lung apices through the upper abdomen. Coronal and sagittal reformatted images were obtained. Low dose technique was uti lized. CT DLP: 79.5 mGycm, Automated exposure control for dose reduction was used. CT Contrast: Contrast used: None Oral contrast used: None FINDINGS: ======== Lack of intravenous contrast and low dose technique limits the evaluation of the vascular and soft ti ssue structures. LUNGS: No evidence of pulmonary fibrosis. No evidence of focal consolidation, pneumothorax or pleural effusion. Centrilobular emphysema changes seen throughout the lungs. Streaky atelectasis seen within the lung bases. Atelectasis consolidation in the lingula. Nodules: RUL: None. RML: None. RLL: None. BRIDGER: None. LLL: None. AIRWAY: Patent and unremarkable. HEART: Size within normal limits. MEDIASTINUM: No gross evidence of adenopathy. VASCULATURE: No aortic aneurysm. MUSCULOSKELETAL: Moderate disc degeneration changes are present throughout the thoracolumbar spine. SOFT TISSUES/LYMPH NODES: Unremarkable. LOWER NECK: No significant findings. UPPER ABDOMEN: No significant findings. IMPRESSION: 1. No clinically significant pulmonary nodules. No new or enlarging pulmonary nodules identified. 2. Moderate to severe emphysema changes. CT LUNG RAD AND CT CHEST RECOMMENDATION: Lung-Rad 2 Benign Appearance or Behavior: Continue annual sc reening with LDCT in 12 months. S Modifier (other clinically significant findings): None Recommend smoking cessation (if current smoker), or continuation of smoking cessation (if prior smoke r). Annual screening for lung cancer with low-dose computed tomography is recommended in adults ages 55 to 77 years who have a 30 pack-year smoking history and currently smoke or have quit within the pa st 15 years. Screening should be discontinued once a person has not smoked for 15 years or develops a health problem that substantially limits life expectancy or the ability or willingness to have curat farooq lung surgery. Lung rads 2021 [email or web address]
== END | disposition home or self-care (01) ==
LOC: RADCTMAIN 09:25
PROVIDERS: ATTEND Internal Medicine Critical Care Medicine
DX: Z12.2 Encounter for screening for malignant neoplasm of respiratory organs (principal); J43.2 Centrilobular emphysema; Z87.891 Personal history of nicotine dependence
CPT/HCPCS: 71271

== ENCOUNTER → 2023-11-17 | Outpatient (CLI) | payer MEDICARE ==
--- NOTE | 2023-11-17 10:00 | CTL ---
EXAMINATION TYPE: CT Low Dose Lung DATE OF EXAM ORDERED: 11/17/2023 HISTORY: . Low Dose CT Lung Screening CT DLP: 119.[address] CTDI: 3.2 mGy IV CONTRAST USED: None. SCREENING VISIT: First visit COMPARISON: 11/20/2022 TECHNIQUE: Low dose computed tomography scan was performed through the chest at 1 millimeter thick se ctions and reconstructed images in the coronal plane at [address] DIAGNOSTIC QUALITY: Satisfactory FINDINGS: LUNG NODULES: No distinct pulmonary nodularity appreciated. LUNGS: COPD: Severity: Moderate emphysematous changes noted. Fibrosis: Severity:None Lymph nodes: None Other findings: Parenchymal scarring left lower lobe posteriorly and within the right middle lobe unc hanged. Chronic elevation right hemidiaphragm. RIGHT PLEURAL SPACE: Effusion: None Calcification: None Thickening: None Pneumothorax: None LEFT PLEURAL SPACE: Effusion: None Calcification: None Thickening: None Pneumothorax: None HEART: Heart Size: Mildly enlarged Coronary calcification: Moderate Pericardial effusion: None OTHER FINDINGS: Upper abdomen: No significant abnormality Bony thorax: Degenerative changes Supraclavicular region: No significant abnormalityOther: No significant abnormalityI IMPRESSION: 1. No overt nodularity greater than 5 mm appreciated. 2. Moderate emphysematous change with areas of parenchymal scarring is noted. FOLLOW UP CT CHEST RECOMMENDATION: Follow-up screening in one year CT LUNG RAD: LUNG RAD CATEGORY 1 negative
== END | disposition home or self-care (01) ==
LOC: RADCTMAIN 09:03
PROVIDERS: ATTEND Internal Medicine Critical Care Medicine
DX: Z12.2 Encounter for screening for malignant neoplasm of respiratory organs (principal); J43.9 Emphysema, unspecified; J98.4 Other disorders of lung; Z87.891 Personal history of nicotine dependence
CPT/HCPCS: 71271

== ENCOUNTER → 2023-12-03 | Outpatient (CLI) | payer MEDICARE | END | disposition home or self-care (01) | LOC: LABPRL 12:53 | PROVIDERS: ATTEND Family Medicine | DX: E11.9 Type 2 diabetes mellitus without complications (principal) | CPT/HCPCS: 80053; 80061; 83036; 84443; 85025 ==